=== PATIENT | male | born 1975 | race Caucasian/White ===

== ENCOUNTER 2020-01-04 18:28 | Emergency (ER) | payer OTHER, SELFPAY ==
[2020-01-04 18:46] VITALS: BP 153/96; PULSE 99; RESP 16; TEMP 36.7; O2SAT 97; BMI 32.5
--- NOTE | 2020-01-04 18:58 | ED.EYEPROB ---
HPI - Eye Problem General Chief complaint: Eye Problems Stated complaint: eye injury Time Seen by Provider: 01/04/20 18:58 History of Present Illness HPI Narrative: Patient was hit in the right eye with a branch while gardening and complains of watering and pain in the right eye with no loss of vision, no other injury Related Data Previous Rx's Medication Instructions Recorded erythromycin 0.5 inch OPHTHALMIC (EYE) TID 4 01/04/20 Days #3.5 g ibuprofen 600 mg PO Q6H PRN #20 tab 01/04/20 Allergies Allergy/AdvReac Type Severity Reaction Status Date / Time No Known Allergies Allergy Verified 01/04/20 20:10 [No Known Allergies*] Review of Systems Review of Systems: There is eye pain and watering There is no vision loss no photophobia no laceration to the face no head injury no numbness no weakness PMFSH Past Medical History Source: nursing notes reviewed Medical History (Updated 01/04/20 @ 19:54 by VIKTORIA De Dios) Gout Surgical History (Updated 01/04/20 @ 18:49 by Amaya Reese) Previous back surgery Social History Social History Smoking Status: Never smoker Use of substances other than those prescribed or required for medical reasons: No Advance Directives: No Advance Directives Information Provided: No Physical Exam Vital Signs: Vital Signs: Last Vital Signs Temp 98.1 F 01/04/20 18:46 Pulse 99 01/04/20 18:46 Resp 16 01/04/20 18:46 BP 153/96 H 01/04/20 18:46 Pulse Ox 97 01/04/20 18:46 Body Mass Index 32.5 Elevated blood pressure is noted General appearance no acute distress, A&O x3 Head is normocephalic atraumatic the right eye is held partially shot with some tearing and some conjunctival redness Neck supple Respiratory no acute distress Extremities for Eboni motion x4 Skin no rash Neuro no focal deficit Course Course Course Narrative: The right eye was stained with fluorescein after tetracaine was applied There was full relief of discomfort with tetracaine and a visual acuity exam was 2020 in the affected eye Pupils equal round reactive to light Extraocular motions intact, with staining 2 corneal abrasions were visible 1 superior to the iris and 1 medial, no foreign body was seen, the right upper and lower eyelids were everted and there was no foreign body Patient was treated for corneal abrasion Discharge Plan Discharge Clinical Impression: Corneal abrasion Qualifiers: Encounter type: initial encounter Laterality: right Qualified Code(s): S05.01XA - Injury of conjunctiva and corneal abrasion without foreign body, right eye, initial encounter Patient Disposition: Home, Self-Care Additional Instructions: There were 2 medium-size abrasions in the right cornea, these usually get better by themselves in 2-3 days and you should have lot some improvement within 2 days If not better next week follow with eye doctor, you may need a referral from primary physician Return to ER any time for discharge, worsening eye pain, loss of vision, any worse condition or any concerns Prescriptions: New erythromycin 5 mg/gram (0.5 %) ointment 0.5 inch ophthalmic (eye) TID 4 Days Qty: 3.5 RF: 0 ibuprofen 600 mg tablet 600 mg PO Q6H PRN (Reason: pain) Qty: 20 RF: 0 Referrals: Kevin Vegas [Physician] - 2 days (Right corneal abrasion) Stand Alone Forms: Work/School Release Interventions: ED Discharge Assessment Last Done: 01/04/20 20:17 Discharge Date/Time: 01/04/20 20:18
[2020-01-04] MEDS: Fluorescein Sodium STRIP 1 STRIP EYE-LEFT (19:23)
[2020-01-04] MEDS: Tetracaine HCl/PF 0.5% Oph Sol 4 ML DROPS 3 DROP EYE-LEFT (19:23)
[2020-01-04] MEDS: Erythromycin Base 0.5% Oph Oin 1 GM TUBE 1 CM EYE-RIGHT (19:59)
== END 2020-01-04 20:18 | disposition home or self-care (01) ==
PROVIDERS: Emergency Provider Emergency Medicine; PCP Internal Medicine
DX: S05.01XA Injury of conjunctiva and corneal abrasion without foreign body, right eye, initial encounter (principal); H57.11 Ocular pain, right eye; Y93.H2 Activity, gardening and landscaping; Y93.9 Activity, unspecified; Y92.9 Unspecified place or not applicable; Y99.9 Unspecified external cause status; Z79.899 Other long term (current) drug therapy
CPT/HCPCS: 99283

== ENCOUNTER 2020-09-01 12:44 | Emergency (ER) | payer OTHER, SELFPAY ==
--- NOTE | ~2020-09-01 | XR_ITS ---
EXAMINATION: XR CHEST CLINICAL INFORMATION: Shortness of breath COMPARISON: None TECHNIQUE: 2 views of the chest were obtained. FINDINGS: No significant abnormality is noted involving the heart, lungs, mediastinum, bony thorax or soft tissues. XR/XR chest 2V IMPRESSION: Unremarkable examination.
[2020-09-01 12:49] VITALS: BP 124/82; PULSE 80; RESP 16; TEMP 36.8; O2SAT 97; BMI 28.8
--- NOTE | 2020-09-01 13:08 | ECG_ITS ---
Test Reason : SHORTOF BREATH Blood Pressure : / mmHG Vent. Rate : 072 BPM Atrial Rate : 072 BPM P-R Int : 168 ms QRS Dur : 092 ms QT Int : 388 ms P-R-T Axes : 035 046 025 degrees QTc Int : 424 ms Normal sinus rhythm Normal ECG No previous ECGs available Referred By: Flores Michelle Electronically Signed By:Cristi Schulz
--- NOTE | 2020-09-01 13:16 | ED_ITS ---
HPI - SOB/Dyspnea General Chief Complaint: General Medical Stated Complaint: Chest Pain Time Seen by Provider: 09/01/20 13:08 Source: patient Mode of arrival: ambulatory Limitations: no limitations History of Present Illness MD elicited complaint: shortness of breath and chest pain Onset (ago): month(s) (1) Timing: intermittent Severity: moderate Exacerbating factors: stress Relieving factors: nothing Associated symptoms: chest pain Treatment prior to arrival: none Related Data Previous Rx's Medication Instructions Recorded erythromycin 0.5 inch OPHTHALMIC (EYE) TID 4 01/04/20 Days #3.5 g ibuprofen 600 mg PO Q6H PRN #20 tab 01/04/20 Allergies Allergy/AdvReac Type Severity Reaction Status Date / Time No Known Allergies Allergy Verified 01/04/20 20:10 [No Known Allergies*] Review of Systems Review of Systems: Constitutional : No Weight loss, No Fever, No Chills ENT/Mouth : No sore throat, No Rhinorrhea Eyes: No Eye Pain, No Swelling Cardiovascular : pos Chest Pain, pos SOB, no Dyspnea on Exertion, No Orthopnea, No Edema, No Palpitations Respiratory : No Cough, No Sputum Gastrointestinal : no Nausea, No Vomiting, No Diarrhea, No abdominal Pain, No Hematochezia, No Melena Genitourinary : No Dysuria, No Urinary Frequency Musculoskeletal : No joint pain, No Myalgias, No Joint Swelling Skin : No Skin Lesions, No rash Neuro : No Weakness, No Numbness, No Dizziness, No Headache Psych : No Anxiety/Panic, No Depression Heme/Lymph: No Bruising, No Lymphadenopathy Endocrine : No Polyuria, No Polydipsia All other systems reviewed and are negative [facility] Past Medical History Attestation statement: The following information was validated with the patient. Medical History Gout Surgical History Previous back surgery Social History Social History (Updated 09/01/20 @ 14:02 by Flores Michelle DO) Patient Tobacco Use Status: Never used Tobacco Use of substances other than those prescribed or required for medical reasons: No Advance Directives: Yes Advance Directives Information Provided: Yes Advance Directives on File: No Physical Exam Vital Signs: Vital Signs: Last Vital Signs Temp 98.2 F 09/01/20 12:49 Pulse 76 09/01/20 13:22 Resp 16 09/01/20 13:22 BP 144/85 H 09/01/20 13:22 Pulse Ox 97 09/01/20 13:22 Body Mass Index 28.8 Appearance: Alert. Oriented X3. No acute distress. Eyes: Pupils equal, round and reactive to light. ENT: Pharynx normal. Neck: Normal inspection. Neck supple. CVS: Normal heart rate and rhythm. Pulses normal. Respiratory: No respiratory distress. Breath sounds normal. Abdomen: Soft and non-tender. Skin: Skin warm and dry. Normal skin color. Normal skin turgor. Extremities: No lower extremity edema. No calf ttp Neuro: Oriented X 3. No motor deficit. No sensory deficit. Course Course Course Narrative: negative workup with one month of symptoms MDM - SOB/Dyspnea MDM Narrative Medical decision making narrative: 44 yo male with hx of gout comes in with 1 month of dyspnea and stacking breaths, he is very active and works out 2 hours a day or so without symptoms given that unlikely to be ACS, doubt PE as well he is PERC negative, will obtain EKG, CXR, troponin x 1, dispo per results and findings. Lab Data Result diagrams: 09/01/20 13:48 09/01/20 13:49 Labs: Lab Results 09/01/20 09/01/20 09/01/20 Range/Units 13:48 13:48 13:48 WBC 5.6 (4.8-10.8) X10*3/uL RBC 4.84 (4.60-5.80) X10*6/uL Hgb 15.0 (14.0-18.0) g/dl Hct 44.0 (42-52) % MCV 90.9 (80-98) fL MCH 31.0 (27.0-33.0) pg MCHC 34.1 (31.0-36.0) g/dl RDW 12.4 (11.0-16.0) % Plt Count 147 L (160-400) X10*3/uL MPV 10.3 (9.4-12.4) fL Immature Gran % (Auto) 0.4 (0.0-0.4) % Neut % (Auto) 69.7 (45-73) % Lymph % (Auto) 21.0 (20-40) % Williamson % (Auto) 5.5 (2-11) % Eos % (Auto) 3.0 (0-4) % Baso % (Auto) 0.4 (0-2) % Lymph # (Auto) 1.2 (1.2-4.9) X10*3/uL Williamson # (Auto) 0.3 (0.1-1.2) X10*3/uL Eos # (Auto) 0.2 (0.0-0.4) X10*3/uL Baso # (Auto) 0.0 (0.0-0.2) X10*3/uL Abs Immat Gran (auto) 0.02 (0.00-0.03) X10*3/uL Absolute Neuts (auto) 3.9 (2.0-8.3) X10*3/uL Absolute Nucleated RBC 0.000 (0.0-0.012) X10*3/uL Nucleated RBC % (auto) 0.0 (0.0-0.2) /100WBC Sodium (135-145) mmol/L Potassium (3.3-5.1) mmol/L Chloride (96-108) mmol/L Carbon Dioxide (22-29) mmol/L Anion Gap (12-20) BUN (9-16) mg/dL Creatinine (0.5-1.4) mg/dL Estim Creat Clear Calc Estimated GFR Random Glucose (60-115) mg/dL Calcium (8.4-10.2) mg/dL Magnesium (1.6-2.6) mg/dL Total Bilirubin (0.0-1.0) mg/dL Direct Bilirubin (0.0-0.5) mg/dL AST (5-37) U/L ALT (0-40) U/L Alkaline Phosphatase (39-117) U/L Troponin I High Sens (<3.5-35.0) ng/L B-Natriuretic Peptide 15 (<100) pg/mL Total Protein (6.5-8.0) g/dL Albumin (3.5-5.0) g/dL COVID-19 (ZANE) Negative (Negative) COVID-19 Clin Com See Note 09/01/20 09/01/20 Range/Units 13:48 13:49 WBC (4.8-10.8) X10*3/uL RBC (4.60-5.80) X10*6/uL Hgb (14.0-18.0) g/dl Hct (42-52) % MCV (80-98) fL MCH (27.0-33.0) pg MCHC (31.0-36.0) g/dl RDW (11.0-16.0) % Plt Count (160-400) X10*3/uL MPV (9.4-12.4) fL Immature Gran % (Auto) (0.0-0.4) % Neut % (Auto) (45-73) % Lymph % (Auto) (20-40) % Williamson % (Auto) (2-11) % Eos % (Auto) (0-4) % Baso % (Auto) (0-2) % Lymph # (Auto) (1.2-4.9) X10*3/uL Williamson # (Auto) (0.1-1.2) X10*3/uL Eos # (Auto) (0.0-0.4) X10*3/uL Baso # (Auto) (0.0-0.2) X10*3/uL Abs Immat Gran (auto) (0.00-0.03) X10*3/uL Absolute Neuts (auto) (2.0-8.3) X10*3/uL Absolute Nucleated RBC (0.0-0.012) X10*3/uL Nucleated RBC % (auto) (0.0-0.2) /100WBC Sodium 142 (135-145) mmol/L Potassium 4.4 (3.3-5.1) mmol/L Chloride 107 (96-108) mmol/L Carbon Dioxide 28 (22-29) mmol/L Anion Gap 11 L (12-20) BUN 22 H (9-16) mg/dL Creatinine 0.87 (0.5-1.4) mg/dL Estim Creat Clear Calc 116.7 Estimated GFR > 60 Random Glucose 115 (60-115) mg/dL Calcium 9.1 (8.4-10.2) mg/dL Magnesium 2.0 (1.6-2.6) mg/dL Total Bilirubin 0.6 (0.0-1.0) mg/dL Direct Bilirubin 0.2 (0.0-0.5) mg/dL AST 18 (5-37) U/L ALT 22 (0-40) U/L Alkaline Phosphatase 61 (39-117) U/L Troponin I High Sens < 3.5 (<3.5-35.0) ng/L B-Natriuretic Peptide (<100) pg/mL Total Protein 5.9 L (6.5-8.0) g/dL Albumin 3.9 (3.5-5.0) g/dL COVID-19 (ZANE) (Negative) COVID-19 Clin Com ECG Data Attestation: I personally reviewed and interpreted this ECG as follows: ECG interpretation date: 09/01/20 ECG interpretation time: 13:40 Interpretation: Rate: 72 Rhythm: NSR Mcclure: normal Normal P waves. Normal RUSS. Normal QRS complex. ST T wave : no JONATHAN, normal qTC: normal prior studies: no acute ischemia The study has been interpreted contemporaneously by me. . Discharge Plan Discharge Clinical Impression: Acute dyspnea Patient Disposition: Home, Self-Care Instructions: Dyspnea (ED) Additional Instructions: return to ED for any worsening symptoms or concerns Prescriptions: No Action erythromycin 5 mg/gram (0.5 %) ointment 0.5 inch ophthalmic (eye) TID 4 Days Qty: 3.5 RF: 0 ibuprofen 600 mg tablet 600 mg PO Q6H PRN (Reason: pain) Qty: 20 RF: 0 Referrals: Jeramie Martinez MD [Primary Care Provider] - 2 days Stand Alone Forms: Work/School Release
[2020-09-01 13:22] VITALS: BP 144/85; PULSE 76; RESP 16; O2SAT 97
[2020-09-01 14:00] LABS: MANUAL DIFF FLAG NO
[2020-09-01 14:02] LABS: Basophils Percent Auto 0.4 % (0-2); Eosinophils Absolute Auto 0.2 X10*3/uL (0.0-0.4); Imm Gran Abs Auto 0.02 X10*3/uL (0.00-0.03); Imm Gran Pct Auto 0.4 % (0.0-0.4); Lymphocytes Absolute Auto 1.2 X10*3/uL (1.2-4.9); Mean Corpuscular HGB Conc 34.1 g/dl (31.0-36.0); Mean Corpuscular Volume 90.9 fL (80-98); Mean Platelet Volume 10.3 fL (9.4-12.4); Monocytes Absolute Auto 0.3 X10*3/uL (0.1-1.2); Monocytes Percent Auto 5.5 % (2-11); Neutrophils Absolute Auto 3.9 X10*3/uL (2.0-8.3); Neutrophils Percent Auto 69.7 % (45-73); Platelet Count 147 X10*3/uL (160-400); Red Blood Count 4.84 X10*6/uL (4.60-5.80); Red Cell Distribution Width 12.4 % (11.0-16.0); White Blood Count 5.6 X10*3/uL (4.8-10.8)
[2020-09-01 14:13] LABS: COVID-19 Test Negative (Negative)
[2020-09-01 14:25] LABS: Alanine Aminotransferase 22 U/L (0-40); Albumin Level 3.9 g/dL (3.5-5.0); Alkaline Phosphatase 61 U/L (39-117); Anion Gap 11 (12-20); Aspartate Amino Transferase 18 U/L (5-37); Bilirubin Direct 0.2 mg/dL (0.0-0.5); Bilirubin Total 0.6 mg/dL (0.0-1.0); Blood Urea Nitrogen 22 mg/dL (9-16); Calcium 9.1 mg/dL (8.4-10.2); Carbon Dioxide 28 mmol/L (22-29); Chloride 107 mmol/L (96-108); Creatinine Clr Calc Pharmacy 116.7; Estimated Glomerular Filt Rate > 60; Glucose Random 115 mg/dL (60-115); Potassium 4.4 mmol/L (3.3-5.1); Sodium 142 mmol/L (135-145); Total Protein 5.9 g/dL (6.5-8.0)
[2020-09-01 14:28] LABS: B Type Natriuretic Peptide 15 pg/mL (<100); Troponin-I High Sensitivity < 3.5 ng/L (<3.5-35.0)
== END 2020-09-01 14:51 | disposition home or self-care (01) ==
PROVIDERS: Emergency Provider Emergency Medicine; PCP Internal Medicine
DX: R06.00 Dyspnea, unspecified (principal); R07.9 Chest pain, unspecified; R06.02 Shortness of breath; Z20.822 Contact with and (suspected) exposure to COVID-19; Z79.899 Other long term (current) drug therapy
CPT/HCPCS: 36415; 71046; 80048; 80076; 83735; 83880; 84484; 85025; 87635; 93005; 99284

== ENCOUNTER → 2022-05-30 08:35 | Outpatient (BNVA) | payer BC, SELFPAY | PROVIDERS: PCP Internal Medicine; Visit Provider Nurse Practitioner Family | DX: Z13.89 Encounter for screening for other disorder (principal) ==

== ENCOUNTER 2023-09-14 13:14 | Emergency (ER) | payer BC, SELFPAY ==
--- NOTE | ~2023-09-14 | XR_ITS ---
EXAMINATION: XR SHOULDER, LEFT CLINICAL INFORMATION: Left shoulder pain worsening over last 2 days. COMPARISON: None available. TECHNIQUE: AP external rotation, Grashey, scapular Y, and axillary views of the left shoulder. FINDINGS: Acromioclavicular joint is intact. No significant glenohumeral cartilage space loss. There are curvilinear calcifications along the rotator cuff. No displaced fracture or dislocation. XR/XR shoulder LT min 2V IMPRESSION: Calcific tendinosis of the left shoulder.
[2023-09-14 13:31] VITALS: BP 179/104; PULSE 99; RESP 18; TEMP 36.9; O2SAT 99; BMI 33.4
--- NOTE | 2023-09-14 13:37 | ED.GENADULT ---
HPI - General Adult General Chief complaint: Extremity Problem Stated complaint: shoulder pain Time Seen by Provider: 09/14/23 14:25 Source: patient, RN notes reviewed and old records reviewed Mode of arrival: ambulatory History of Present Illness ED Provider: Maris Pinedo PA-C HPI narrative: 47-year-old male with no significant past medical history presenting to the ED complaining of acute on chronic left shoulder pain x5 days. States was lifting bags into vehicle for vacation when felt shooting/stabbing pain and left shoulder. Reports pain is worse with movement, and worse at night. Took Motrin last night without relief. Reports associated paresthesias to LUE. Denies direct injury/trauma or fall, weakness, chest pain/shortness of breath. Admits to receiving prior cortisone injection to left shoulder months ago at going on Orthopedics with some relief. Related Data Previous Rx's ?Medication ?Instructions ?Recorded acetaminophen 500 mg tablet 500 mg PO Q6H PRN fever or pain 09/14/23 (Tylenol Extra Strength) #14 tabs cyclobenzaprine 5 mg tablet 5 mg PO Q8H PRN pain (scale score 09/14/23 7-10) 5 days #14 tabs lidocaine 5 % topical patch 1 patch topical DAILY PRN pain #30 09/14/23 (Lidoderm) ea naproxen 500 mg tablet 500 mg PO BID PRN pain 10 days #20 09/14/23 tabs Allergies Allergy/AdvReac Type Severity Reaction Status Date / Time No Known Allergies Allergy Verified 09/14/23 13:36 [No Known Allergies*] Review of Systems Review of Systems: Constitutional: No Fever, No Chills ENT/Mouth: No Ear Pain, No Nasal Congestion, No sore throat, No Rhinorrhea, No Swallowing Difficulty Cardiovascular: No Chest Pain, No SOB Respiratory: No Cough Gastrointestinal: No Nausea, No Vomiting, No Abdominal pain Musculoskeletal: +joint pain, No Myalgias, No Joint Swelling Skin: No Skin Lesions, No rash Neuro: No Weakness, No Numbness, + Paresthesias Yes all other systems are reviewed and are negative Constitutional: Constitutional: Reports as per [facility] Past Medical History Attestation statement: The following information was validated with the patient. Source: old records reviewed Medical History Gout Surgical History Previous back surgery Social History Social History Patient Tobacco Use Status: Never used Tobacco Advance Directives: No Advance Directives Information Provided: Yes Do you have a plan to hurt others: No Plan Physical Exam ED Vital Signs: Vital Signs - 24 hr 09/14/23 13:31 09/14/23 15:47 Temperature 98.4 F 97.8 F Pulse Rate 99 85 Respiratory Rate 18 16 Blood Pressure 179/104 H 135/87 Pulse Oximetry 99 98 Oxygen Delivery Method Room Air Room Air BMI result Body Mass Index 33.4 Const General: cooperative, healthy appearing and no acute distress Orientation/consciousness: patient oriented x3 Limitations: no limitations HENMT Head: Yes normal to inspection and Yes atraumatic Ears: hearing grossly normal bilaterally General nose exam: Normal external nose present Face and sinus: Yes normal facial exam Eyes General: appearance normal, both eyes and all related structures EOM: EOMs intact bilaterally Neck Neck: Yes normal visual inspection and Yes no meningeal signs Resp Effort & Inspection: normal respiratory effort and no respiratory distress Cardio Rate: regular rate Skin Rashes: no rashes Wounds: no wounds Neuro General: patient oriented x3, tone normal and no meningeal signs Cranial nerves: Yes CN's II-XII intact bilaterally Gait exam (Neuro): Normal gait present Extrem Other: Left shoulder without appreciable deformity. + tenderness to anterior glenohumeral joint line. Limited ROM to LUE secondary to pain. Neurovascular intact distal General: Yes normal to inspection Course Course Course Narrative: This is a Rapid Medical Examination (RME) performed by Sandra Donald PA-C in triage. Full HPI, ROS, assessment and treatment plan per primary provider in the Main ED. 47 yo male here with acute on chronic left shoulder pain x5 days. Reports that while on vacation he felt a twinge in his left shoulder. Pain is described as shooting/ throbbing, unable to lift the arm without assistance from his right arm. Reports numbness/tingling in his fingers at night can not difficult for him to sleep. Denies new injury or trauma. took Motrin yesterday with minimal relief. received corticosteroid injection in L shoulder 6 mo ago with improvement. has an appt w/ his orthopedic surgeon on Sunday (in 4 days). Plan: xrs ordered 1553--XR shoulder LT min 2V IMPRESSION: Calcific tendinosis of the left shoulder. Results discussed with patient including worrisome signs and symptoms and strict return precautions, and when to return to the emergency department. They verbalized understanding and feel safe for discharge at this time. Medications Administered Discontinued Medications Generic Name Dose Route Start Last Admin Trade Name Rafael PRN Reason Stop Dose Admin Acetaminophen 650 mg 09/14/23 14:37 09/14/23 14:54 Acetaminophen 325 Mg Tablet PO 09/14/23 14:38 650 mg ONCE ONE Administration Ketorolac Tromethamine 30 mg 09/14/23 14:37 09/14/23 14:54 Ketorolac Tromethamine 30 Mg/Ml Vial IM 09/14/23 14:38 30 mg ONCE ONE Administration Medical Decision Making Medical Decision Making MDM Narrative: 47-year-old male with no significant past medical history presenting to the ED complaining of acute on chronic left shoulder pain x5 days. On exam hypertensive likely from pain, NAD, nontoxic appearing, physical exam as noted above. Concern for rotator cuff injury or labrum tear vs MSK/tendon/ligamental injury. Lower suspicion for fracture. Unlikely bursitis, or ACS Plan: EKG, x-ray, pain control Please refer to course for remaining clinical decision making, interpretation of labs/imaging results, and discussions with consultants and/or family members. Differential Diagnosis Differential Diagnoses: The differential diagnosis associated with the presentation includes As above Independent Interpretation I performed an independent interpretation of an: Plain X-Ray Radiology Impression Discussion of test interpretation with radiology: I have reviewed the radiologist's reading. External Record Review External record reviewed: Inpatient record, Office record, Outpatient record, Prior outpatient labs, Prior outpatient radiology, Primary care record and Outside ED record Tests considered The following testing was considered but not selected: As above Prescription Management I considered prescription management with: Pain Medication Discharge Plan Discharge Clinical Impression: Left shoulder pain Patient Disposition: Home, Self-Care Instructions: Shoulder Pain (ED) Additional Instructions: Flexeril is a muscle relaxer, take at night as it makes you drowsy, do not drive, drink alcohol, or operate machinery while taking it Naproxen as an anti-inflammatory / pain medication, take with food Lidoderm patches are numbing patches, apply to painful area In addition take Tylenol at home If symptoms persist or worsen, pain becomes unbearable, return to the ED Prescriptions: New acetaminophen [Tylenol Extra Strength] 500 mg tablet 500 mg PO Q6H PRN (Reason: fever or pain) Qty: 14 0RF lidocaine [Lidoderm] 5 % adhesive patch,medicated 1 patch topical DAILY MDD remove after 12 hours PRN (Reason: pain) Qty: 30 0RF Rx Instructions: leave on most painful area for up to 12 hrs naproxen 500 mg tablet 500 mg PO BID PRN (Reason: pain) 10 Days Qty: 20 0RF cyclobenzaprine 5 mg tablet 5 mg PO Q8H PRN (Reason: pain (scale score 7-10)) 5 Days Qty: 14 0RF Referrals: [facility] [Provider Group] Jeramie Martinez MD [Primary Care Provider] - Print Language: [place]
--- OUTSIDE RECORDS SUMMARY | 2023-09-14 14:30 | XMS_ITS | Continuity of Care Document ---
Author Organization [facility] Nathan [place] lt Address [address] [place] [address]- Care Team Providers Care Implementation Project Coordinator Name Role Phone Michelle JUDGE, Jeramie Minaya Primary Care Physician [phone] Encounter [facility] Date(s): 05/26/22 - 06/25/22 [facility] Adult [address] [place] [address]- Allergies, Adverse Reactions, Alerts No Known Allergies Immunizations Given and Recorded Vaccine Date Status Refusal Reason SARS-CoV-2 (COVID-19) mRNA-1273 vaccine 02/07/21 R ecorded SARS-CoV-2 (COVID-19) mRNA-1273 vaccine 06/12/20 R ecorded SARS-CoV-2 (COVID-19) mRNA-1273 vaccine 05/15/20 R ecorded influenza virus vaccine, inactivated 04/20/20 Give n influenza virus vaccine, inactivated 1 03/02/17 Gi mariana tetanus/diphtheria/pertussis, acel(Tdap) 06/16/15 Given 1Result Comment: [03/02/2017] [facility]:[id number] Medications allopurinol 300 mg oral tablet 1, tablet, By Mouth, Daily at bedtime, # 90 tablet, Refills 1, Maintenance, 11/15/21 13:02:00 EDT, Route to Pharmacy Electronically, [id number], 173.5, cm, 04/20/20 7:25:00 EST, Height Start Date: 11/15/21 Status: Ordered Ibuprofen 200 mg, PRN, Refills 0, Maintenance, Pain , Severe, 04/11/19 10:31:00 EST Start Date: 04/11/19 Status: Ordered Problem List Condition Confirmation Course Effective Dates Status H ealth Status Informant BMI 34.0-34.9,adult Confirmed Active Carpal tunnel syndrome, bilateral Confirmed Active Chronic lower back pain Confirmed Active Gout Confirmed Active Nephrolithiasis 1 Confirmed Active Elevated liver function tests Confirmed Active Obese class II Confirmed Active [facility] Social History Social History Type Response Smoking Status Former smoker; Other : Quit smoking age 18; entered on: 03/02/17 Sex Patient Care team information Care Team Personnel Name: Michelle JUDGE, Jeramie Minaya Position: [facility] Primary Care Physician Member Role: PCP Address: Address: [address] [place] [id number]- Care Team Related Persons Name: SEBASTIEN DA SILVA Address: [address] [address]
--- OUTSIDE RECORDS SUMMARY | 2023-09-14 14:30 | XMS_ITS | Continuity of Care Document ---
Author Organization [facility] Nathan [place] lt Address [address] [place] [id number]- Care Team Providers Care Television Mechanic Name Role Phone Jeramie Martinez MD Primary Care Physician Encounter [facility] Date(s): 07/25/22 - 08/24/22 [facility] Adult [address] [place] [address]- Attending Physician: Admtr, Ar8 Admitting Physician: Admtr, Ar8 Referring Physician: Admtr, Ar8 Allergies, Adverse Reactions, Alerts No Known Allergies Immunizations Given and Recorded Vaccine Date Status Refusal Reason SARS-CoV-2 (COVID-19) mRNA-1273 vaccine 02/07/21 R ecorded SARS-CoV-2 (COVID-19) mRNA-1273 vaccine 06/12/20 R ecorded SARS-CoV-2 (COVID-19) mRNA-1273 vaccine 05/15/20 R ecorded influenza virus vaccine, inactivated 04/20/20 Give n influenza virus vaccine, inactivated 1 03/02/17 Gi mariana tetanus/diphtheria/pertussis, acel(Tdap) 06/16/15 Given 1Result Comment: [03/02/2017] [facility]:[id number] Medications allopurinol 300 mg oral tablet 1, tablet, By Mouth, Daily at bedtime, # 90 tablet, Refills 1, Maintenance, 11/15/21 13:02:00 EDT, Route to Pharmacy Electronically, [id number], 173.5, cm, 04/20/20 7:25:00 EST, Height Start [...] Gout Confirmed Active Nephrolithiasis 1 Confirmed Active Left groin pain Confirmed Active Elevated liver function tests Confirmed Active Obese class II Confirmed Active [facility] Social History Social History Type Response Smoking Status Former smoker; Other : Quit smoking age 18; entered on: 03/02/17 Sex Laboratory * Event Display: Non Lab Results Authored Date: * Event Display: Non [facility] Lab Results Authored Date: * Event Display: Non [facility] Lab Results Authored Date: Radiology * Event Display: MRI Spine, Non- [facility] Authored Date: Patient Care team information Care Team Personnel Name: Michelle JUDGE, Jeramie Minaya Position: S Physician - Primary Care Member Role: PCP Address: Address: [address] [place] [address] Adult [facility] [place] [address]- Care Team Related Persons Name: SEBASTIEN DA SILVA Address: home [address] [address]
--- OUTSIDE RECORDS SUMMARY | 2023-09-14 14:31 | XMS_ITS | Continuity of Care Document ---
Author Organization [facility] [place] Address [address] [place] [address]- Care Team Providers Care Plant Etiologist Name Role Phone Michelle JUDGE, Jeramie Minaya Primary Care Physician [facility] Date[facility]): [facility]20 - 03/23/20 [facility] Adult [address] [place] [address]- Attending Physician: Marely Del Rosario NP Allergies, Adverse Reactions, Alerts Substance Reaction Severity Status NKA Active Immunizations Given and Recorded Vaccine Date Status Refusal Reason influenza virus vaccine, inactivated 1 03/02/17 Gi mariana tetanus/diphtheria/pertussis, acel(Tdap) 06/16/15 Given 1Result Comment: [03/02/2017] [facility]:42435-616-62 Medications allopurinol 300 mg oral tablet 300 mg, 1, tablet, By Mouth, Daily at bedtime, # 90 tablet, Refills 1, Tot. Refills 1, Maintenance,03/16/20 8:08:00 EST, Route to Pharmacy Electronically, [facility]/pharmacy #[id number], 173.5, cm, 03/16/20 7:45:00 EST, Height, 99.5, kg, 04/17/19 11:41:00 EST, D... Start Date: 03/16/20 Status: Ordered Ibuprofen 200 mg, PRN, Refills 0, Maintenance, Pain , Severe, 04/11/19 10:31:00 EST Start Date: 04/11/19 Status: Ordered Problem List Condition Effective Dates Status Health Status Inform ant Carpal tunnel syndrome, bilateral(Confirmed) Active Chronic lower back pain(Confirmed) Active Gout(Confirmed) Active Vital Signs Most recent to oldest [Reference Range]: 1 Height 173.5 cm (03/16/20 7:45 AM) Social History Social History Type Response Smoking Status Former smoker; Other : Quit smoking age 18; entered on: 03/02/17 Sex
--- OUTSIDE RECORDS SUMMARY | 2023-09-14 14:31 | XMS_ITS | Continuity of Care Document ---
Author Organization [facility] [place] lt Address [address] [place] [address]- Care Team Providers Care Assistant Professor Sculpture Name Role Phone Jeramie Martinez MD Primary Care Physician Encounter [facility] Date(s): 04/13/22 - 05/13/22 [facility] Adult [address] [place] [address]- Attending Physician: Admtr, Ar8 Admitting Physician: Admtr, [...] acel(Tdap) 06/16/15 Given 1Result Comment: [03/02/2017] [facility]:45788-581-68 Medications allopurinol 300 mg oral tablet 1, tablet, By Mouth, Daily at bedtime, # 90 tablet, Refills 1, Maintenance, 11/15/21 13:02:00 EDT, Route to Pharmacy Electronically, [facility], 173.5, cm, 04/20/20 7:25:00 EST, Height Start Date: 11/15/21 Status: Ordered Ibuprofen 200 mg, PRN, Refills 0, Maintenance, Pain , Severe, 04/11/19 10:31:00 EST Start Date: 04/11/19 Status: Ordered Problem List Condition Confirmation Course Effective Dates Status Health St atus Informant BMI 34.0-34.9,adult Confirmed Active Carpal tunnel syndrome, bilateral Confirmed Active Chronic lower back pain Confirmed Active Gout Confirmed Active Elevated liver function tests Confirmed Active Obese class II Confirmed Active Social History Social History Type Response Smoking Status Former smoker; Other : Quit smoking age 18; entered on: 03/02/17 Sex Note * Event Display: Non BH Lab Results Authored Date: * Event Display: Non BH Lab Results Authored Date: * Event Display: MRI Spine, Non- BH Authored Date: * Event Display: Non BH Lab Results Authored Date: Patient Care team information Care Team Personnel Name: Michelle JUDGE, Jeramie Minaya Position: [facility] Primary Care Physician Member Role: PCP Address: Address: [address] [place], [place] [address] [address]- Care Team Related Persons Name: SEBASTIEN DA SILVA Address: home [address] [place] [address] [place] [address]
--- OUTSIDE RECORDS SUMMARY | 2023-09-14 14:31 | XMS_ITS | Continuity of Care Document ---
Author Organization [facility] [place] Address [address] [place] [address]- Care Team Providers Care Rug Repairer Name Role Phone Jeramie Martinez MD Primary Care Physician [phone] [facility]): 07/26/22 - 08/25/22 [facility] Adult [address] [place] [address]- Allergies, Adverse Reactions, Alerts No Known Allergies Immunizations Given and Recorded Vaccine Date Status Refusal Reason SARS-CoV-2 (COVID-19) mRNA-1273 vaccine 02/07/21 R ecorded SARS-CoV-2 (COVID-19) mRNA-1273 vaccine 06/12/20 R ecorded SARS-CoV-2 (COVID-19) mRNA-1273 vaccine 05/15/20 R ecorded influenza virus vaccine, inactivated 04/20/20 Give n influenza virus vaccine, inactivated 1 03/02/17 Gi mariana tetanus/diphtheria/pertussis, acel(Tdap) 06/16/15 Given 1Result Comment: [03/02/2017] [facility]:97079-129-85 Medications allopurinol 300 mg oral tablet 1, tablet, By Mouth, Daily at bedtime, # 90 tablet, Refills 1, Maintenance, 11/15/21 13:02:00 EDT, Route to Pharmacy Electronically, [facility], 173.5, cm, 04/20/20 7:25:00 EST, Height Start [...] Confirmed Active Obese class II Confirmed Active [facility] Social History Social History Type Response Smoking Status Former smoker; Other : Quit smoking age 18; entered on: 03/02/17 Sex Patient Care team information Care Team Personnel Name: Michelle JUDGE, Jeramie Minaya Position: [facility] Physician - Primary Care Member Role: PCP Address: Address: [address] [place] [address]- Care Team Related Persons Name: SEBASTIEN DA SILVA Address: [address] [address]
--- OUTSIDE RECORDS SUMMARY | 2023-09-14 14:31 | XMS_ITS | Continuity of Care Document ---
Author Organization [facility] [place] Address [address] [place] [address]- Care Team Providers Care Dump Truck Driver Name Role Phone Michelle JUDGE, Jeramie Minaya Primary Care Physician [phone] [facility] Date[facility]): 05/25/22 - 06/24/22 [facility] Adult [address] [place] [address]- Allergies, Adverse Reactions, Alerts No Known Allergies Immunizations Given and Recorded Vaccine Date Status Refusal Reason SARS-CoV-2 (COVID-19) mRNA-1273 vaccine 02/07/21 R ecorded SARS-CoV-2 (COVID-19) mRNA-1273 vaccine 06/12/20 R ecorded SARS-CoV-2 (COVID-19) mRNA-1273 vaccine 05/15/20 R ecorded influenza virus vaccine, inactivated 04/20/20 Give n influenza virus vaccine, inactivated 1 03/02/17 Gi mariana tetanus/diphtheria/pertussis, acel(Tdap) 06/16/15 Given 1Result Comment: [03/02/2017] [facility]:16650-202-83 Medications allopurinol 300 mg oral tablet 1, tablet, By Mouth, Daily at bedtime, # 90 tablet, Refills 1, Maintenance, 11/15/21 13:02:00 EDT, Route to Pharmacy Electronically, [facility] 25685, 173.5, cm, 04/20/20 7:25:00 EST, Height Start [...] Personnel Name: Michelle JUDGE, Jeramie Minaya Position: [facility] Primary Care Physician Member Role: PCP Address: Address: [address] [place] [address]- Care Team Related Persons Name: ESBASTIEN DA SILVA Address: [address] [address]
--- OUTSIDE RECORDS SUMMARY | 2023-09-14 14:31 | XMS_ITS | Continuity of Care Document ---
Author Organization [facility] ter Address [address] [place] [address]- Care Team Providers Care End Frazer Name Role Phone Jeramie Martinez MD Primary Care Physician Encounter [facility] Date(s): 04/17/19 - 04/17/[address] [address]- [facility] Discharge Disposition: A-D/C Home Attending Physician: Manjeet Berrios MD Admitting Physician: Manjeet Berrios MD Referring Physician: Manjeet Berrios MD Allergies, Adverse Reactions, Alerts Substance Reaction Severity Status NKA Active Immunizations Given and Recorded Vaccine Date Status Refusal Reason influenza virus vaccine, inactivated 1 03/02/17 Gi mariana tetanus/diphtheria/pertussis, acel(Tdap) 06/16/15 Given 1Result Comment: [03/02/2017] [facility][NOTE 2]:[id number] Medications allopurinol 300 mg oral tablet 300 mg, 1, tablet, By Mouth, Daily at bedtime, # 30 tablet, Refills 0, Tot. Refills 0, Maintenance,06/16/15 15:57:32, Route to Pharmacy Electronically, [id number], [facility]/pharmacy #[id number] Start Date: 06/16/15 Status: Ordered Ibuprofen 200 mg, PRN, Refills 0, Maintenance, Pain , Severe, 04/11/19 10:31:00 EST Start Date: 04/11/19 Status: Ordered Problem List Condition Effective Dates Status Health Status Inform ant Carpal tunnel syndrome, bilateral(Confirmed) Active Chronic lower back pain(Confirmed) Active Gout(Confirmed) Active Vital Signs Most recent to oldest [Reference Range]: 1 2 Height 173.5 cm (04/17/19 11:41 AM) 175.26 cm (04/11/19 10:23 AM) Weight 99.5 kg (04/17/19 11:41 AM) 95.45 kg (04/11/19 10:23 AM) Oxygen Saturation [94-100 %] 99 % (04/17/19 11:41 AM) Pulse Rate [55-90 bpm] 93 bpm *H* (04/17/19 11:41 AM) Body Mass Index [18.5-24.99] 33.05 *>HHI* (04/17/19 11:41 AM) 31.07 *>HHI* (04/11/19 10:23 AM) Blood Pressure [90-138/55-84 mm Hg] 129/ 88mm Hg (04/17/19 11:41 AM) Respiratory Rate [16-30 br/min] 18 br/mi n (04/17/19 11:41 AM) Temperature [96.8-100.4 DegF] 98.4 DegF (04/17/19 12:30 PM) 98.3 DegF (04/17/19 11:41 AM) Mode of Delivery (Oxygen) Room air (04/17/19 11:41 AM) Blood pressure sites Arm, left (04/17/19 11:41 AM) Temperature Route Temporal (04/17/19 12:30 PM) Temporal (04/17/19 11:41 AM) Dry Weight 99.5 kg (04/17/19 11:41 AM) 95.45 kg (04/11/19 10:23 AM) Weight Obtained Via Standing scale (04/17/19 11:41 AM) Patient/family stated (04/11/19 10:23 AM) Dry Weight Obtained Via Standing scale (04/17/19 11:41 AM) Patient/family stated (04/11/19 10:23 AM) Social History Social History Type Response Smoking Status Former smoker; Other : Quit smoking age 18; entered on: 03/02/17 Sex
--- OUTSIDE RECORDS SUMMARY | 2023-09-14 14:31 | XMS_ITS | Continuity of Care Document ---
Author Organization [facility] [place] Address [address] [place] [address]- Care Team Providers Care Chemical Operations Specialist Name Role Phone Michelle JUDGE, Jeramie Minaya Primary Care Physician [facility]s): 04/25/21 - 05/25/21 [facility] Adult [address] [place] [address]- Attending Physician: Admtr, [id number] Admitting Physician: AdmtrRula Referring Physician: Admtr, Ar8 Allergies, Adverse Reactions, Alerts No Known Allergies Immunizations Given and Recorded Vaccine Date Status Refusal Reason SARS-CoV-2 (COVID-19) mRNA-1273 vaccine 02/07/21 R ecorded SARS-CoV-2 (COVID-19) mRNA-1273 vaccine 06/12/20 R ecorded SARS-CoV-2 (COVID-19) mRNA-1273 vaccine 05/15/20 R ecorded influenza virus vaccine, inactivated 04/20/20 Give n influenza virus vaccine, inactivated 1 03/02/17 Gi mariana tetanus/diphtheria/pertussis, acel(Tdap) 06/16/15 Given 1Result Comment: [03/02/2017] [facility]:92019-680-86 Medications allopurinol 300 mg oral tablet 1, tablet, By Mouth, Daily at bedtime, # 90 tablet, Refills 1, Tot. Refills 1, Maintenance, 03/27/21 10:54:00 EST, Route to Pharmacy Electronically, [facility]/pharmacy #[id number], 173.5, cm, 04/20/20 7:25:00 EST, Height, 99.5, kg, 04/17/19 11:41:00 EST, Dry Weight Start Date: 03/27/21 Status: Ordered Ibuprofen 200 mg, PRN, Refills 0, Maintenance, Pain , Severe, 04/11/19 10:31:00 EST Start Date: 04/11/19 Status: Ordered Problem List Condition Effective Dates Status Health Status Inform ant BMI 34.0-34.9,adult(Confirmed) Active Carpal tunnel syndrome, bilateral(Confirmed) Active Chronic lower back pain(Confirmed) Active Gout(Confirmed) Active Elevated liver function tests(Confirmed) Active Social History Social History Type Response Smoking Status Former smoker; Other : Quit smoking age 18; entered on: 03/02/17 Sex
--- OUTSIDE RECORDS SUMMARY | 2023-09-14 14:31 | XMS_ITS | Continuity of Care Document ---
Author Organization [facility] Nathan [place] Address [address] [place] [address]- Care Team Providers Care Phlebotomy Specialist Name Role Phone Jeramie Martinez MD Primary Care Physician [phone] Encounter [facility] Date(s): 03/16/20 - 05/09/20 [facility] Adult [address] [place] [address]- Attending Physician: Marely Del Rosario NP Referring Physician: Jeramie Martinez MD Allergies, Adverse Reactions, Alerts Substance Reaction Severity Status NKA Active Immunizations Given and Recorded Vaccine Date Status Refusal Reason influenza virus vaccine, inactivated 04/20/20 Give n influenza virus vaccine, inactivated 1 03/02/17 Gi mariana tetanus/diphtheria/pertussis, acel(Tdap) 06/16/15 Given 1Result Comment: [03/02/2017] [facility]:16685-947-87 Medications allopurinol 300 mg oral tablet 300 mg, 1, tablet, By Mouth, Daily at bedtime, # 90 tablet, Refills 1, Tot. Refills 1, Maintenance,03/16/20 8:08:00 EST, Route to Pharmacy Electronically, [facility]/pharmacy #[id number], 173.5, cm, 03/16/20 7:45:00 EST, [...]
--- OUTSIDE RECORDS SUMMARY | 2023-09-14 14:31 | XMS_ITS | Continuity of Care Document ---
Author Organization [facility] [place] Address [address] [place] [address]- Care Team Providers Care Property Site Manager Name Role Phone Michelle JUDGE, Jeramie Minaya Primary Care Physician [phone] [facility] Date[facility]s): 01/22/21 - 05/25/21 [facility] Adult [address] [place] [address]- Attending Physician: Marely Del Rosario NP Referring Physician: Jeramie Martinez MD Allergies, Adverse Reactions, Alerts No Known Allergies Immunizations Given and Recorded Vaccine Date Status Refusal Reason SARS-CoV-2 (COVID-19) mRNA-1273 vaccine 02/07/21 R ecorded SARS-CoV-2 (COVID-19) mRNA-1273 vaccine 06/12/20 R ecorded SARS-CoV-2 (COVID-19) mRNA-1273 vaccine 05/15/20 R ecorded influenza virus vaccine, inactivated 04/20/20 Give n influenza virus vaccine, inactivated 1 03/02/17 Gi mariana tetanus/diphtheria/pertussis, acel(Tdap) 06/16/15 Given 1Result Comment: [03/02/2017] [facility][NOTE 3]:[id number] Medications allopurinol 300 mg oral tablet 1, tablet, By Mouth, Daily at bedtime, # 90 tablet, Refills 1, Tot. Refills 1, Maintenance, 03/27/21 10:54:00 EST, Route to Pharmacy Electronically, [facility]/pharmacy #[id number], 173.5, cm, 04/20/20 7:25:00 EST, Height, [...]
--- OUTSIDE RECORDS SUMMARY | 2023-09-14 14:31 | XMS_ITS | Continuity of Care Document ---
Author Organization [facility] [place] Address [address] [place] [address]- Care Team Providers Care Air Compressor Engineer Name Role Phone Jeramie Martinez MD Primary Care Physician [phone] Encounter [facility] Date(s): 08/31/20 - 09/30/20 [facility] Adult [address] [place] [address]- Allergies, Adverse Reactions, Alerts Substance Reaction Severity Status NKA Active Immunizations Given and Recorded Vaccine Date Status Refusal Reason influenza virus vaccine, inactivated 04/20/20 Give n influenza virus vaccine, inactivated 1 03/02/17 Gi mariana tetanus/diphtheria/pertussis, acel(Tdap) 06/16/15 Given 1Result Comment: [03/02/2017] [facility]:08762-793-73 Medications allopurinol 300 mg oral tablet 1, tablet, By Mouth, Daily at bedtime, # 90 tablet, Refills 1, Tot. Refills 0, Maintenance, 09/15/20 8:13:00 EDT, Route to Pharmacy Electronically, [email or web address] 0[facility]82, 173.5, cm, 04/20/20 7:25:00 EST, Height, 99.5, kg, 04/17/19 11:41:00 EST, Dry Weight Start Date: 09/15/20 Status: Ordered Ibuprofen 200 mg, PRN, Refills [...]
--- OUTSIDE RECORDS SUMMARY | 2023-09-14 14:31 | XMS_ITS | Continuity of Care Document ---
Author Organization [facility] [place] Address [address] [place] [address]- Care Team Providers Care Laboratory Sample Carrier Name Role Phone Jeramie Martinez MD Primary Care Physician [phone] [facility] Date(s): 08/01/22 - 08/31/22 [facility] Adult [address] [place] [address]- Allergies, Adverse Reactions, Alerts No Known Allergies Immunizations Given and Recorded Vaccine Date Status Refusal Reason SARS-CoV-2 (COVID-19) mRNA-1273 vaccine 02/07/21 R ecorded SARS-CoV-2 (COVID-19) mRNA-1273 vaccine 06/12/20 R ecorded SARS-CoV-2 (COVID-19) mRNA-1273 vaccine 05/15/20 R ecorded influenza virus vaccine, inactivated 04/20/20 Give n influenza virus vaccine, inactivated 1 03/02/17 Gi mariana tetanus/diphtheria/pertussis, acel(Tdap) 06/16/15 Given 1Result Comment: [03/02/2017] [facility]:85560-630-84 Medications allopurinol 300 mg oral tablet 1, tablet, By Mouth, Daily at bedtime, # 90 tablet, Refills 1, Maintenance, 11/15/21 13:02:00 EDT, Route to Pharmacy Electronically, [facility] 34954, 173.5, cm, 04/20/20 7:25:00 EST, Height Start [...] Confirmed Active Obese class II Confirmed Active [facility] Social History Social History Type Response Smoking Status Former smoker; Other : Quit smoking age 18; entered on: 03/02/17 Sex Patient Care team information Care Team Personnel Name: Michelle JUDGE, Jeramie Minaya Position: [facility] Physician - Primary Care Member Role: PCP Address: Address: [address] [place] [address]- Care Team Related Persons Name: SEBASTIEN DA SILVA Address: [address] [address]
--- OUTSIDE RECORDS SUMMARY | 2023-09-14 14:31 | XMS_ITS | Continuity of Care Document ---
Author Organization [facility] Nathan [place] lt Address [address] [place] [address]- Care Team Providers Care Supervisor Order Takers Name Role Phone Michelle JUDGE, Jeramie Minaya Primary Care Physician [facility]): 05/04/22 - 06/03/22 [facility] Adult [address] [place] [address]- Allergies, Adverse Reactions, Alerts No Known Allergies Immunizations Given and Recorded Vaccine Date Status Refusal Reason SARS-CoV-2 (COVID-19) mRNA-1273 vaccine 02/07/21 R ecorded SARS-CoV-2 (COVID-19) mRNA-1273 vaccine 06/12/20 R ecorded SARS-CoV-2 (COVID-19) mRNA-1273 vaccine 05/15/20 R ecorded influenza virus vaccine, inactivated 04/20/20 Give n influenza virus vaccine, inactivated 1 03/02/17 Gi mariana tetanus/diphtheria/pertussis, acel(Tdap) 06/16/15 Given 1Result Comment: [03/02/2017] [facility]:38361-882-79 Medications allopurinol 300 mg oral tablet 1, tablet, By Mouth, Daily at bedtime, # 90 tablet, Refills 1, Maintenance, 11/15/21 13:02:00 EDT, Route to Pharmacy Electronically, [facility] 40618, 173.5, cm, 04/20/20 7:25:00 EST, Height Start [...] Personnel Name: Michelle JUDGE, Jeramie Minaya Position: [facility] Primary Care Physician Member Role: PCP Address: Address: [address] [place] [address]- Care Team Related Persons Name: SEBASTIEN DA SILVA Address: [address] [address]
--- OUTSIDE RECORDS SUMMARY | 2023-09-14 14:31 | XMS_ITS | Continuity of Care Document ---
Author Organization [facility] [place] Address [address] [place] [address]- Care Team Providers Care Social Work Lecturer Name Role Phone Jeramie Martinez MD Primary Care Physician [phone] [facility]s): 11/23/22 - 12/23/22 [facility] Adult [address] [place] [address]- Allergies, Adverse Reactions, Alerts No Known Allergies Immunizations Given and Recorded Vaccine Date Status Refusal Reason SARS-CoV-2 (COVID-19) mRNA-1273 vaccine 02/07/21 R ecorded SARS-CoV-2 (COVID-19) mRNA-1273 vaccine 06/12/20 R ecorded SARS-CoV-2 (COVID-19) mRNA-1273 vaccine 05/15/20 R ecorded influenza virus vaccine, inactivated 04/20/20 Give n influenza virus vaccine, inactivated 1 03/02/17 Gi mariana tetanus/diphtheria/pertussis, acel(Tdap) 06/16/15 Given 1Result Comment: [03/02/2017] [facility]:32241-020-35 Problem List Condition Confirmation Course Effective Dates Status H ealth Status Informant BMI 34.0-34.9,adult Confirmed Active Carpal tunnel syndrome, bilateral Confirmed Active Chronic lower back pain Confirmed Active Gout Confirmed Active Nephrolithiasis 1 Confirmed Active Left groin pain Confirmed Active Elevated liver function tests Confirmed Active Obese class II Confirmed Active [facility] Social History Social History Type Response Smoking Status Former smoker; Other : Quit smoking age 18; entered on: 03/02/17 Sex Patient Care team information Care Team Personnel Name: Jeramie Martinez MD Position: S Physician - Primary Care Member Role: PCP Address: Address: [address] [place] [address] [place] [address]- Care Team Related Persons Name: AVINASHSEBASTIEN Address: home [address] [address]
--- OUTSIDE RECORDS SUMMARY | 2023-09-14 14:31 | XMS_ITS | Continuity of Care Document ---
Author Organization [facility] Rico Evans [place] lt Address [address] [place] [address]- Care Team Providers Care Clinical Investigator Name Role Phone Jeramie Martinez MD Primary Care Physician [place] [facility] Date(s): 04/25/22 - 05/25/22 [facility] Adult [address] [place] [address]- Allergies, Adverse Reactions, Alerts No Known Allergies Immunizations Given and Recorded Vaccine Date Status Refusal Reason SARS-CoV-2 (COVID-19) mRNA-1273 vaccine 02/07/21 R ecorded SARS-CoV-2 (COVID-19) mRNA-1273 vaccine 06/12/20 R ecorded SARS-CoV-2 (COVID-19) mRNA-1273 vaccine 05/15/20 R ecorded influenza virus vaccine, inactivated 04/20/20 Give n influenza virus vaccine, inactivated 1 03/02/17 Gi mariana tetanus/diphtheria/pertussis, acel(Tdap) 06/16/15 Given 1Result Comment: [03/02/2017] [facility]:94248-726-98 Medications allopurinol 300 mg oral tablet 1, tablet, By Mouth, Daily at bedtime, # 90 tablet, Refills 1, Maintenance, 11/15/21 13:02:00 EDT, Route to Pharmacy Electronically, [facility] 40934, 173.5, cm, 04/20/20 7:25:00 EST, Height Start [...] Personnel Name: Michelle JUDGE, Jeramie Minaya Position: [facility] Primary Care Physician Member Role: PCP Address: Address: [address] [place] [address]- Care Team Related Persons Name: SEBASTIEN DA SILVA Address: [address] [address]
--- OUTSIDE RECORDS SUMMARY | 2023-09-14 14:31 | XMS_ITS | Continuity of Care Document ---
Author Organization [facility] Address [address] [place] [address]- Care Team Providers Care It Systems Engineer Name Role Phone Jeramie Martinez MD Primary Care Physician Encounter [facility] [place] Date(s): 02/14/23 - 06/14/23 [facility] [address] [place] [address] Attending Physician: Geeta Garcia DO Admitting Physician: Geeta Garcia DO Allergies, Adverse Reactions, Alerts No Known Allergies Immunizations Given and Recorded Vaccine Date Status Refusal Reason SARS-CoV-2 (COVID-19) mRNA-1273 vaccine 02/07/21 R ecorded SARS-CoV-2 (COVID-19) mRNA-1273 vaccine 06/12/20 R ecorded SARS-CoV-2 (COVID-19) mRNA-1273 vaccine 05/15/20 R ecorded influenza virus vaccine, inactivated 04/20/20 Give n influenza virus vaccine, inactivated 1 03/02/17 Gi mariana tetanus/diphtheria/pertussis, acel(Tdap) 06/16/15 Given 1Result Comment: [03/02/2017] [facility]:[id number] Problem List Condition Confirmation Course Effective Dates Status H ealth Status Informant BMI 34.0-34.9,adult Confirmed Active Carpal tunnel syndrome, bilateral Confirmed Active Chronic lower back pain Confirmed Active Gout Confirmed Active Nephrolithiasis 1 Confirmed Active Left groin pain Confirmed Active Elevated liver function tests Confirmed Active Obese class II Confirmed Active [facility] [place] [facility] Social History Social History Type Response Smoking Status Former smoker; Other : Quit smoking age 18; entered on: 03/02/17 Sex Patient Care team information Care Team Personnel Name: Jeramie Martinez MD Position: S Physician - Primary Care Member Role: PCP Address: Address: [address] [place] [address] [place] [address]- Care Team Related Persons Name: SEBASTIEN DA SILVA Address: home [address] [place] [address]
--- OUTSIDE RECORDS SUMMARY | 2023-09-14 14:31 | XMS_ITS | Continuity of Care Document ---
Author Organization [facility] [place] Address [address] [place] [address]- Care Team Providers Care Link Assembler Name Role Phone Jeramie Martinez MD Primary Care Physician [facility]counter [facility] Date(s): 07/06/22 - 08/05/22 [facility] Adult [address] [place] [address]- Allergies, Adverse Reactions, Alerts No Known Allergies Immunizations Given and Recorded Vaccine Date Status Refusal Reason SARS-CoV-2 (COVID-19) mRNA-1273 vaccine 02/07/21 R ecorded SARS-CoV-2 (COVID-19) mRNA-1273 vaccine 06/12/20 R ecorded SARS-CoV-2 (COVID-19) mRNA-1273 vaccine 05/15/20 R ecorded influenza virus vaccine, inactivated 04/20/20 Give n influenza virus vaccine, inactivated 1 03/02/17 Gi mariana tetanus/diphtheria/pertussis, acel(Tdap) 06/16/15 Given 1Result Comment: [03/02/2017] [facility]:[id number] Medications allopurinol 300 mg oral tablet 1, tablet, By Mouth, Daily at bedtime, # 90 tablet, Refills 1, Maintenance, 11/15/21 13:02:00 EDT, Route to Pharmacy Electronically, [facility] 49272, 173.5, cm, 04/20/20 7:25:00 EST, Height Start [...] Confirmed Active Obese class II Confirmed [place] [facility] [place] Social History Social History Type Response Smoking Status Former smoker; Other : Quit smoking age 18; entered on: 03/02/17 Sex Patient Care team information Care Team Personnel Name: Michelle JUDGE, Jeramie Minaya Position: S Physician - Primary Care Member Role: PCP Address: Address: [address] [place] [address]- Care Team Related Persons Name: SEBASTIEN DA SILVA Address: home [address] [place] [address]
--- OUTSIDE RECORDS SUMMARY | 2023-09-14 14:31 | XMS_ITS | Continuity of Care Document ---
Author Organization [facility] Agusto [place] Address [address] [place] [address]- Care Team Providers Care Fisher Weir Name Role Phone Jeramie Martinez MD Primary Care Physician [place] [facility] [place] 08/01/22 [facility] [place] Albaley Adult [address] [place] [address]- Attending Physician: Jeramie Martinez MD Allergies, Adverse Reactions, [...] acel(Tdap) 06/16/15 Given 1Result Comment: [03/02/2017] [facility]:[id number] Medications allopurinol 300 mg oral tablet 1, tablet, By Mouth, Daily at bedtime, # 90 tablet, Refills 1, Maintenance, 11/15/21 13:02:00 EDT, Route to Pharmacy Electronically, [facility] 12454, 173.5, cm, 04/20/20 7:25:00 EST, Height Start [...] Confirmed Active Obese class II Confirmed Active [facility] [place] Vital Signs Most recent to oldest [Reference Range]: 1 Height 173.5 cm (07/25/22 12:41 PM) Oxygen Saturation [94-100 %] 98 % (07/25/22 12:41 PM) Pulse Rate [55-90 bpm] 94 bpm *H* (07/25/22 12:41 PM) Blood Pressure [90-138/55-84 mm Hg] 128/ 80mm Hg (07/25/22 12:41 PM) Mode of Delivery (Oxygen) Room air (07/25/22 12:41 PM) Social History Social History Type Response Smoking Status Former smoker; Other : Quit smoking age 18; entered on: 03/02/17 Sex Patient Care team information Care Team Personnel Name: Michelle JUDGE, Jeramie Minaya Position: [facility] Physician - Primary Care Member Role: PCP Address: Address: [address] [place] [address] Adult [facility] [place] [address]- Care Team Related Persons Name: SEBASTIEN DA SILVA Address: home [address] [facility] [place] [address]
--- OUTSIDE RECORDS SUMMARY | 2023-09-14 14:31 | XMS_ITS | Continuity of Care Document ---
Author Organization [facility] Rico Liz [place] Address [address] [place] [address]- Care Team Providers Care Progress Man Name Role Phone Jeramie Martinez MD Primary Care Physician [facility] Date(s): 09/18/22 - 10/18/22 [facility] Rico Liz Adult [address] [place] [address]- Allergies, Adverse Reactions, Alerts No Known Allergies Immunizations Given and Recorded Vaccine Date Status Refusal Reason SARS-CoV-2 (COVID-19) mRNA-1273 vaccine 02/07/21 R ecorded SARS-CoV-2 (COVID-19) mRNA-1273 vaccine 06/12/20 R ecorded SARS-CoV-2 (COVID-19) mRNA-1273 vaccine 05/15/20 R ecorded influenza virus vaccine, inactivated 04/20/20 Give n influenza virus vaccine, inactivated 1 03/02/17 Gi mariana tetanus/diphtheria/pertussis, acel(Tdap) 06/16/15 Given 1Result Comment: [03/02/2017] [facility]:[id number] Medications allopurinol 300 mg oral tablet 1, tablet, By Mouth, Daily at bedtime, # 90 tablet, Refills 1, Maintenance, 11/15/21 13:02:00 EDT, Route to Pharmacy Electronically, [facility] 27263, 173.5, cm, 04/20/20 7:25:00 EST, Height Start Date: 11/15/21 Status: Ordered Ibuprofen 200 mg, PRN, Refills 0, Maintenance, Pain , Severe, 04/11/19 10:31:00 EST Start Date: 04/11/19 Status: Ordered LORazepam 0.5 mg oral tablet See Instructions, 1 tablet by mouth 1 hour prior to MRI appointment, # 1 tablet, 0 Refills, Maintenance, 09/18/22 9:14:00 EDT, Tablet, [id number], Partial fill upon patient request if the prescription is for a schedule II opioid drug., 173.5,... Start Date: 09/18/22 Status: Ordered Problem List Condition Confirmation Course Effective Dates Status H ealth Status Informant BMI 34.0-34.9,adult Confirmed Active Carpal tunnel syndrome, bilateral Confirmed Active Chronic lower back pain Confirmed Active Gout Confirmed Active Nephrolithiasis 1 Confirmed Active Left groin pain Confirmed Active Elevated liver function tests Confirmed Active Obese class II Confirmed Active [facility] [place] Social History Social History Type Response Smoking Status Former smoker; Other : Quit smoking age 18; entered on: 03/02/17 Sex Patient Care team information Care Team Personnel Name: Michelle JUDGE, Jeramie Minaya Position: S Physician - Primary Care Member Role: PCP Address: Address: [address] [place] [address] [place] [address]- Care Team Related Persons Name: SEBASTIEN DA SILVA Address: home [address] [place] [address] [place] [address]
--- OUTSIDE RECORDS SUMMARY | 2023-09-14 14:31 | XMS_ITS | Continuity of Care Document ---
Author Organization [facility] Address [address] [place] [address]- Care Team Providers Care Supervisor Blooming Mill Name Role Phone Jeramie Martinez MD Primary Care Physician [phone] [place] [facility] [place] 06/14/23 [facility] [address] [place] [address] Attending Physician: Rula Telles Admitting Physician: AdmRula arias Referring Physician: Admtr Ar8 Allergies, Adverse Reactions, Alerts No Known Allergies Immunizations Given and Recorded Vaccine Date Status Refusal Reason SARS-CoV-2 (COVID-19) mRNA-1273 vaccine 02/07/21 R ecorded SARS-CoV-2 (COVID-19) mRNA-1273 vaccine 06/12/20 R ecorded SARS-CoV-2 (COVID-19) mRNA-1273 vaccine 05/15/20 R ecorded influenza virus vaccine, inactivated 04/20/20 Give n influenza virus vaccine, inactivated 1 03/02/17 Gi mariana tetanus/diphtheria/pertussis, acel(Tdap) 06/16/15 Given 1Result Comment: [03/02/2017] [facility]:[id number] Problem List Condition Confirmation Course Effective Dates Status H ealth Status Informant BMI 34.0-34.9,adult Confirmed Active Carpal tunnel syndrome, bilateral Confirmed Active Chronic lower back pain Confirmed Active Gout Confirmed Active Nephrolithiasis 1 Confirmed Active Left groin pain Confirmed Active Elevated liver function tests Confirmed Active Obese class II Confirmed [place] [facility] [place] Social History Social History Type Response Smoking Status Former smoker; Other : Quit smoking age 18; entered on: 03/02/17 Sex Patient Care team information Care Team Personnel Name: Jeramie Martinez MD Position: S Physician - Primary Care Member Role: PCP Address: Address: [address] [place] [address] [place] [facility] [place] [address]- Care Team Related Persons Name: SEBASTIEN DA SILVA Address: home [address] [place] [address]
--- OUTSIDE RECORDS SUMMARY | 2023-09-14 14:31 | XMS_ITS | Continuity of Care Document ---
Author Organization [facility] Nathan [place] lt Address [address] [place] [address]- Care Team Providers Care Veneer Stacker Name Role Phone Michelle JUDGE, Jeramie Minaya Primary Care Physician [phone] [facility]counter [facility] Date(s): 05/29/22 - 06/28/22 [facility] Adult [address] [place] [address]- Allergies, Adverse Reactions, Alerts No Known Allergies Immunizations Given and Recorded Vaccine Date Status Refusal Reason SARS-CoV-2 (COVID-19) mRNA-1273 vaccine 02/07/21 R ecorded SARS-CoV-2 (COVID-19) mRNA-1273 vaccine 06/12/20 R ecorded SARS-CoV-2 (COVID-19) mRNA-1273 vaccine 05/15/20 R ecorded influenza virus vaccine, inactivated 04/20/20 Give n influenza virus vaccine, inactivated 1 03/02/17 Gi mariana tetanus/diphtheria/pertussis, acel(Tdap) 06/16/15 Given 1Result Comment: [03/02/2017] [facility]:[id number] Medications allopurinol 300 mg oral tablet 1, tablet, By Mouth, Daily at bedtime, # 90 tablet, Refills 1, Maintenance, 11/15/21 13:02:00 EDT, Route to Pharmacy Electronically, [facility] 60430, 173.5, cm, 04/20/20 7:25:00 EST, Height Start [...] Personnel Name: Michelle JUDGE, Jeramie Minaya [facility] Primary Care Physician Member Role: PCP Address: Address: [address] [place] [address]- Care Team Related Persons Name: SEBASTIEN DA SILVA Address: [address] [address]
--- OUTSIDE RECORDS SUMMARY | 2023-09-14 14:31 | XMS_ITS | Continuity of Care Document ---
Author Organization [facility] Nathan [place] lt Address [address] [place] [address]- Care Team Providers Care Inventory Planner Name Role Phone Jeramie Martinez MD Primary Care Physician [facility]counter [facility] Date(s): 07/19/22 - 08/18/22 [facility] Adult [address] [place] [address]- Allergies, Adverse Reactions, Alerts No Known Allergies Immunizations Given and Recorded Vaccine Date Status Refusal Reason SARS-CoV-2 (COVID-19) mRNA-1273 vaccine 02/07/21 R ecorded SARS-CoV-2 (COVID-19) mRNA-1273 vaccine 06/12/20 R ecorded SARS-CoV-2 (COVID-19) mRNA-1273 vaccine 05/15/20 R ecorded influenza virus vaccine, inactivated 04/20/20 Give n influenza virus vaccine, inactivated 1 03/02/17 Gi mariana tetanus/diphtheria/pertussis, acel(Tdap) 06/16/15 Given 1Result Comment: [03/02/2017] [facility]:[id number] Medications allopurinol 300 mg oral tablet 1, tablet, By Mouth, Daily at bedtime, # 90 tablet, Refills 1, Maintenance, 11/15/21 13:02:00 EDT, Route to Pharmacy Electronically, [facility] 51522, 173.5, cm, 04/20/20 7:25:00 EST, Height Start [...] Confirmed Active Obese class II Confirmed Active [facility] [place] Social History Social History Type Response Smoking Status Former smoker; Other : Quit smoking age 18; entered on: 03/02/17 Sex Patient Care team information Care Team Personnel Name: Michelle JUDGE, Jeramie Minaya Position: [facility] Physician - Primary Care Member Role: PCP Address: Address: [address] [place] [address]- Care Team Related Persons Name: SEBASTIEN DA SILVA Address: [address] [address]
--- OUTSIDE RECORDS SUMMARY | 2023-09-14 14:31 | XMS_ITS | Continuity of Care Document ---
Author Organization [facility] Nathan [place] lt Address [address] [place] [address]- Care Team Providers Care Front End Assistant Name Role Phone Jeramie Martinez MD Primary Care Physician [phone] [facility]counter [facility] Date(s): 07/25/22 - 08/24/22 [facility] Adult [address] [place] [address]- Allergies, Adverse Reactions, Alerts No Known Allergies [...] Comment: [03/02/2017] [facility]:[id number] Medications allopurinol 300 mg oral tablet 1, tablet, By Mouth, Daily at bedtime, # 90 tablet, Refills 1, Maintenance, 11/15/21 13:02:00 EDT, Route to Pharmacy Electronically, [facility] 86318, 173.5, cm, 04/20/20 7:25:00 EST, Height Start [...] Confirmed Active Obese class II Confirmed [place] [facility] [place] Social History Social History Type Response Smoking Status Former smoker; Other : Quit smoking age 18; entered on: 03/02/17 Sex Patient Care team information Care Team Personnel Name: Michelle JUDGE, Jeramie Minaya Position: [facility] Physician - Primary Care Member Role: PCP Address: Address: [address] [place] [address]- Care Team Related Persons Name: SEBASTIEN DA SILVA Address: [address] [address]
--- OUTSIDE RECORDS SUMMARY | 2023-09-14 14:31 | XMS_ITS | Continuity of Care Document ---
Author Organization [facility] Rico Evans [place] lt Address [address] [place] [address]- Care Team Providers Care Mixing House Operator Name Role Phone Jeramie Martinez MD Primary Care Physician [place] [facility] [place] 04/24/22 - 05/24/22 [facility] Adult [address] [place] [address]- Allergies, Adverse Reactions, Alerts No Known Allergies Immunizations Given and Recorded Vaccine Date Status Refusal Reason SARS-CoV-2 (COVID-19) mRNA-1273 vaccine 02/07/21 R ecorded SARS-CoV-2 (COVID-19) mRNA-1273 vaccine 06/12/20 R ecorded SARS-CoV-2 (COVID-19) mRNA-1273 vaccine 05/15/20 R ecorded influenza virus vaccine, inactivated 04/20/20 Give n influenza virus vaccine, inactivated 1 03/02/17 Gi mariana tetanus/diphtheria/pertussis, acel(Tdap) 06/16/15 Given 1Result Comment: [03/02/2017] [facility]:[id number] Medications allopurinol 300 mg oral tablet 1, tablet, By Mouth, Daily at bedtime, # 90 tablet, Refills 1, Maintenance, 11/15/21 13:02:00 EDT, Route to Pharmacy Electronically, [facility] 25509, 173.5, cm, 04/20/20 7:25:00 EST, Height Start [...] Personnel Name: Michelle JUDGE, Jeramie Minaya Position: [facility] Primary Care Physician Member Role: PCP Address: Address: [address] [place] [address]- Care Team Related Persons Name: SEBASTIEN DA SILVA Address: [address] [address]
--- OUTSIDE RECORDS SUMMARY | 2023-09-14 14:31 | XMS_ITS | Continuity of Care Document ---
Author Organization [facility] Rico Evans [place] lt Address [address] [place] [address]- Care Team Providers Care Obiee Report Developer Name Role Phone Jeramie Martinez MD Primary Care Physician En[place] [facility] [place](s): 04/24/22 - 05/24/22 [facility] Adult [address] [place] [address]- Allergies, Adverse Reactions, Alerts No Known Allergies Immunizations Given and Recorded Vaccine Date Status Refusal Reason SARS-CoV-2 (COVID-19) mRNA-1273 vaccine 02/07/21 R ecorded SARS-CoV-2 (COVID-19) mRNA-1273 vaccine 06/12/20 R ecorded SARS-CoV-2 (COVID-19) mRNA-1273 vaccine 05/15/20 R ecorded influenza virus vaccine, inactivated 04/20/20 Give n influenza virus vaccine, inactivated 1 03/02/17 Gi mariana tetanus/diphtheria/pertussis, acel(Tdap) 06/16/15 Given 1Result Comment: [03/02/2017] [facility]:[id number] Medications allopurinol 300 mg oral tablet 1, tablet, By Mouth, Daily at bedtime, # 90 tablet, Refills 1, Maintenance, 11/15/21 13:02:00 EDT, Route to Pharmacy Electronically, [facility] 10443, 173.5, cm, 04/20/20 7:25:00 EST, Height Start [...] Personnel Name: Michelle JUDGE, Jeramie Minaya Position: [facility] Primary Care Physician Member Role: PCP Address: Address: [address] [place] [address]- Care Team Related Persons Name: SEBASTIEN DA SILVA Address: [address] [address]
--- OUTSIDE RECORDS SUMMARY | 2023-09-14 14:31 | XMS_ITS | Continuity of Care Document ---
Author Organization [facility] Nathan [place] lt Address [address] [place] [address]- Care Team Providers Care Victim Witness Administrator Name Role Phone Jeramie Martinez MD Primary Care Physician [place] [facility] [place] 04/22/20 - 05/22/20 [facility] Adult [address] [place] [address]- Allergies, Adverse Reactions, Alerts Substance Reaction Severity Status NKA Active Immunizations Given and Recorded Vaccine Date Status Refusal Reason influenza virus vaccine, inactivated 04/20/20 Give n influenza virus vaccine, inactivated 1 03/02/17 Gi mariana tetanus/diphtheria/pertussis, acel(Tdap) 06/16/15 Given 1Result Comment: [03/02/2017] [facility]:[id number] Medications allopurinol 300 mg oral tablet 300 mg, 1, tablet, By Mouth, Daily at bedtime, # 90 tablet, Refills 1, Tot. Refills 1, Maintenance,03/16/20 8:08:00 EST, Route to Pharmacy Electronically, [facility]/pharmacy #[id number], 173.5, cm, 03/16/20 7:45:00 EST, Height, [...]
--- OUTSIDE RECORDS SUMMARY | 2023-09-14 14:31 | XMS_ITS | Continuity of Care Document ---
Author Organization [facility] Nathan [place] lt Address [address] [place] [address]- Care Team Providers Care Ornamental Metal Erector Name Role Phone Jeramie Martinez MD Primary Care Physician [phone] [place] [facility] [place]20 [facility] Adult [address] [place] [address]- Attending Physician: Not on Staff, Attending MD Referring Physician: Jeramie Martinez MD Allergies, Adverse Reactions, Alerts Substance Reaction Severity Status NKA Active Immunizations Given and Recorded Vaccine Date Status Refusal Reason influenza virus vaccine, inactivated 04/20/20 Give n influenza virus vaccine, inactivated 1 03/02/17 Gi mariana tetanus/diphtheria/pertussis, acel(Tdap) 06/16/15 Given 1Result Comment: [03/02/2017] [facility] [place]:[id number] Medications allopurinol 300 mg oral tablet 300 mg, 1, tablet, By Mouth, Daily at bedtime, # 90 tablet, Refills 1, Tot. Refills 1, Maintenance,03/16/20 8:08:00 EST, Route to Pharmacy Electronically, [facility]/pharmacy #7111, 173.5, cm, 03/16/20 7:45:00 EST, Height, [...] Gout(Confirmed) Active Elevated liver function tests(Confirmed) Active Vital Signs Most recent to oldest [Reference Range]: 1 Height 173.5 cm (04/20/20 7:25 AM) Weight 103.1 kg (04/20/20 7:25 AM) Oxygen Saturation [94-100 %] 98 % (04/20/20 7:25 AM) Pulse Rate [55-90 bpm] 93 bpm *H* (04/20/20 7:25 AM) Body Mass Index [18.5-24.99] 34.25 *>HHI* (04/20/20 7:25 AM) Blood Pressure [90-138/55-84 mm Hg] 124/ 82mm Hg (04/20/20 7:25 AM) Blood pressure sites Arm, left (04/20/20 7:25 AM) Social History Social History Type Response Smoking Status Former smoker; Other : Quit smoking age 18; entered on: 03/02/17 Sex
--- NOTE | 2023-09-14 14:38 | ECG_ITS ---
Test Reason : L shoulder pain Blood Pressure : / mmHG Vent. Rate : 091 BPM Atrial Rate : 091 BPM P-R Int : 162 ms QRS Dur : 102 ms QT Int : 370 ms P-R-T Axes : 026 013 000 degrees QTc Int : 455 ms Normal sinus rhythm Normal ECG When compared with ECG of 01-SEP-2020 13:36, No significant change was found Referred By: Maris Pinedo Electronically Signed By:ILIA PEÑA
[2023-09-14] MEDS: Acetaminophen 325 MG TABLET 650 MG PO (14:54)
[2023-09-14] MEDS: Ketorolac Tromethamine 30 MG/ML VIAL IM (14:54)
[2023-09-14 15:47] VITALS: BP 135/87; PULSE 85; RESP 16; TEMP 36.6; O2SAT 98
[2023-09-14 16:00] VITALS: BP 135/87; PULSE 85; RESP 16; TEMP 36.6; O2SAT 98
== END 2023-09-14 16:01 | disposition home or self-care (01) ==
PROVIDERS: Emergency Provider Emergency Medicine; PCP Internal Medicine
DX: M25.512 Pain in left shoulder (principal)
CPT/HCPCS: 73030; 93005; 96372; 99284; J1885

== ENCOUNTER → 2023-09-14 14:38 | Outpatient (BNV) | payer BC, SELFPAY | PROVIDERS: Emergency Provider Emergency Medicine; PCP Internal Medicine; Visit Provider Internal Medicine | DX: M25.512 Pain in left shoulder (principal) | CPT/HCPCS: 93010 ==

== ENCOUNTER 2024-12-08 08:05 | Outpatient (AMB) | payer OTHER, SELFPAY ==
--- NOTE | 2024-12-08 07:59 | MHC.PC.OV ---
Vital Signs 12/08/24 08:09 Height 5 ft 8.98 in Weight 201 lb 2 oz BMI 29.7 BP 136/71 Blood Pressure Location Rt brachial Position Sitting Pulse 86 Pulse Source Pulse Oximeter Temp 97.1 F Temp Source Temporal Artery Scan Pulse Oximetry (%) 98 Oxygen Delivery Method Room Air Intake Visit Reasons: establish care Intake Note: has been having dizzy spells. has had left testicle discomfort for awhile, feels like dull ache and starts in left abdomen Accompanied by: Self / Same As Patient Allergies No Known Allergies (No Known Allergies*) Allergy (Verified 12/08/24 07:59) Tobacco use date assessed: 12/08/24 Dental Screening Dental Screen Date: 12/08/24 Did you have a dental visit in the last 12 months?: No PFSH Medical History Gout Surgical History Previous back surgery Family History (Updated 12/08/24 @ 08:14 by Jaimie Morse CMA) Mother HTN (hypertension) Father No problems noted. Social History Housing: House Patient Tobacco Use Status: Never used Tobacco service: No Current occupational status: employed Cognitive needs: No Hearing needs: No Vision needs: Yes (rx glasses) Questionnaire PHQ-9 Over the last 2 weeks, how often have you been bothered by any of the following problems? 1. Little interest or pleasure in doing things: not at all 2. Feeling down, depressed, or hopeless: not at all 3. Trouble falling or staying asleep, or sleeping too much: not at all 4. Feeling tired or having little energy: not at all 5. Poor appetite or overeating: not at all 6. Feeling bad about yourself - or that you are a failure or have let yourself or your family down: not at all 7. Trouble concentrating on things, such as reading the newspaper or watching television: not at all 8. Moving or speaking so slowly that other people could have noticed. Or the opposite - being so fidgety or restless that you have been moving around a lot more than usual: not at all 9. Thoughts that you would be better off or of hurting yourself in some way: not at all Total score: 0 Source: Developed by Drs. German He, Isrrael Troy and colleagues, with an educational britney from [employer]. Thrive Questionnaire Date Thrive assessed: 12/08/24 I am a: Patient What is your living situation today?: I have a steady place to live Within the past 12 months, did the food you bought not last and you didn't have the money to get more?: Never true Within the past 12 months, did you worry whether your food would run out before you got money to buy more?: Never true Do you have trouble paying for medicines?: No Do you have trouble getting transportation to medical appointments?: No Do you have trouble paying your heating and electricity bill?: No Do you have trouble taking care of your child, family member or friend?: No Do you have trouble with day-to-day activities such as bathing, preparing meals, shopping, managing finances, etc.?: No Are you currently unemployed and looking for a job?: No Are you interested in more education?: No Please select the resources that you would like help with: None THRIVE Score: 0 AUDIT C Alcohol Use Questionnaire (AUDIT-C) 1. How often do you have a drink containing alcohol?: Monthly or less Total Score: 1 SANTO-7 AMB Questionnaire SANTO-7 Date SANTO - 7 assessed: 12/08/24 Feeling nervous, anxious, or on edge: 0 = Not at all Not being able to stop or control worryin = Not at all Worrying too much about different things: 0 = Not at all Trouble relaxin = Not at all Being so restless that it is hard to sit still: 0 = Not at all Becoming easily annoyed or irritable: 0 = Not at all Feeling afraid as if something awful might happen: 0 = Not at all Total SANTO-7 score (0-4 normal; 5-9 mild; 10-14 moderate; 15-21 severe): 0 Source: Developed by Vane Kuo Kurt Kroenke and colleagues, with an educational britney from [employer]. Physical exam (Primary Care) Vital Signs: Last Vital Signs Temp 97.1 F 12/08/24 08:09 Pulse 86 12/08/24 08:09 BP 136/71 12/08/24 08:09 Pulse Ox 98 12/08/24 08:09 Oxygen Delivery Method Room Air 12/08/24 08:09 BMI result Body Mass Index 29.7 Tobacco/Smoking Status: Tobacco use Status Tobacco use date assessed 12/08/24 12/08/24 08:01 Patient Tobacco Use Status Never used Tobacco 12/08/24 08:01 PHQ-9: PHQ-9 Score PHQ-9: Total score 0 12/08/24 08:08 Thrive Assessment: Date of Thrive Assessment Date Thrive assessed 12/08/24 12/08/24 08:01 Coding Level of Care Code New Pt Level 4 (14961) Complex EM visit Add On G2211 Diagnoses Bilateral nephrolithiasis N20.0 Assessment & Plan Assessment & Plan (1) Bilateral nephrolithiasis: Code(s): N20.0 - Calculus of kidney Category: Medical Plan: History of Present Illness - The patient is a 49-year-old male presenting with dizziness and chronic abdominal pain with radiating pain to the left testicle. 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 - The dizziness is described as more severe than usual, prompting recent blood work and a basic panel by his previous primary care provider. - Chronic abdominal pain: The patient describes persistent abdominal pain with radiating pain to the left testicle, which is constant and aching in nature. - An ultrasound of the scrotum in 2020 revealed a varicocele, but no significant findings were noted at that time. - The patient has not seen a urologist for this issue and no surgical interventions have been performed. - Preventative care: The patient has not undergone a colonoscopy despite being over the age of 48, and there is no family history of colon cancer. Social History - Employment: Works at [employer]. - Family: Lives with and four children, one of whom is a senior at [employer] and lives away from home. - Substance Use: Denies smoking and alcohol consumption. Review of Systems - Neurological: Reports dizziness with episodes of wavy vision. Denies any other neurological symptoms. - Gastrointestinal: Reports chronic abdominal pain with radiating pain to the left testicle. Denies any other gastrointestinal symptoms. - Genitourinary: Reports constant aching pain in the left testicle. Denies any issues with erections. Physical Exam General: Cooperative and healthy appearing Nutritional Appearance: Well nourished Orientation/consciousness: Patient oriented x3 Limitations: No limitations Head: Normal to inspection General: Appearance normal, both eyes and all related structures Neck: Normal visual inspection Chest: Normal palpation of entire chest wall Respiratory: N ormal respiratory effort Neurology: Patient oriented x3, reports episodes of dizziness with wavy vision, requiring further evaluation. Results - Ultrasound: Scrotal ultrasound in 2020 showed a varicocele. Plan - Recommend an eye examination to evaluate the cause of dizziness and wavy vision. If the eye exam is normal and symptoms persist, further testing will be conducted. - Schedule a colonoscopy for colorectal cancer screening as the patient is over 50 years old and has not had one yet. - Referral to a urologist for evaluation of the varicocele and persistent testicular pain. Consideration for surgical intervention if deemed necessary by the specialist. Discussion Notes I discussed with the patient the importance of undergoing an eye examination to determine the cause of his dizziness and wavy vision. If the eye examination is normal and symptoms persist, further diagnostic tests will be considered. We also talked about the necessity of a colonoscopy for colorectal cancer screening, given his age and lack of family history of colon cancer. Additionally, I recommended a referral to a urologist to evaluate the varicocele and persistent testicular pain, with the possibility of surgical intervention if necessary. The patient was informed about the process of scheduling these appointments and the importance of follow-up care. Patient Instructions - Schedule an eye exam to assess dizziness and wavy vision. - Follow up with a colonoscopy appointment for colorectal cancer screening. - Arrange a consultation with a urologist for evaluation of testicular pain and varicocele. Orders: Orders Complete Blood Count no Diff Today N20.0 - Calculus of kidney Lipid Panel Today N20.0 - Calculus of kidney Liver Panel Today N20.0 - Calculus of kidney UA and rflx microscopic Today N20.0 - Calculus of kidney Thyroid Stimulating Hormone Today N20.0 - Calculus of kidney Basic Metabolic Panel Today N20.0 - Calculus of kidney Referrals Gastroenterology Referral Z12.11 - Encounter for screening for malignant neoplasm of colon
[2024-12-08 08:09] VITALS: BP 136/71; PULSE 86; TEMP 36.2; O2SAT 98; BMI 29.7
--- OUTSIDE RECORDS SUMMARY | 2024-12-08 08:10 | XMS_ITS | Data Portability ---
Author Organization [place] - [facility], [facility] Address [address] [place] [address] Care Team Providers Care [employer] Worker Name Role Phone MICKYLEA Burris Primary Care Provider Assessment Encounter Date Assessment Date Assessment LastModified by Organization Details LastModified Time 09/18/2023 09/18/2023 Assessment: 1. 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 Plan: 1. Home rehab program focusing on anterior release 2. Diclofenac -As needed 3. Gabapentin for pain management-As needed as needed 4. The patient has not responded to a subacromial injection as well as a vigorous rehab program. He would likely benefit from a subacromial decompression. An appointment was made with Dr. Adrian All of the patient's questions were answered fully. The patient feels comfortable with the present care plan. Thanks for allowing me to be a part of this patient's care team! Please feel free to contact me for any reason. Sincerely, Moe Muniz MD, FACEP [facility] [place] Not available 09/18/2023 17:08:27 2023 2023 X-rays 4 views previously obtained and personally reviewed today AP internal/external, scapular Y, axillary views left shoulder demonstrate: Calcific tendinitis deposition superior to the greater tuberosity. Glenohumeral joint space preserved. AC joint space preserved with type II acromion. Impression: Left shoulder calcific tendinitis and biceps tendinitis Plan: Reviewed the diagnosis and treatment options with the patient today. He reports temporary relief after previous corticosteroid injection. He has been modifying his activities and avoiding weight lifting. He has significant pain and tenderness over the biceps tendon sheath. Ultrasound-guided biceps tendon sheath corticosteroid injection was administered. He will follow-up again in 6 weeks. If no improvement would recommend MRI left shoulder and potentially considering surgical intervention: Left shoulder diagnostic arthroscopy calcific tendinitis debridement, subacromial decompression, possible biceps tenodesis. [email or web address] Not available 2023 18:36:46 07/02/2024 07/02/2024 A/ L long finger trigger finger recurrent after 1 prior cortisone injection in March 2023 Plan: We reviewed again the pathophysiology of trigger finger and his treatment options. Second cortisone injection is performed today. He understands this should be the final injection and that the neck step for treatment will involve a trigger finger release. Booking sheet completed today for left long trigger finger release surgery. He would like to have this done under local only. He is provided with my executive secretary social welfare's contact information and will call if and when he needs to be scheduled for left long trigger finger release surgery. We have discussed the postoperative recovery course for the recommended surgery. Risks of surgery include but are not limited to: Infection, bleeding, damage normal tissues, need for future surgeries, and recurrent or recalcitrant symptoms after surgery. Questions asked and answered to the patient's satisfaction; surgery to be scheduled with my executive secretary social welfare. [email or web address] Not available 07/02/2024 16:16:51 Plan of Treatment Reminders Order Date Submit Date Provider Last Modified By Organization Details Last Modified Time Details Appointments None recorded. Lab None recorded. Referral None recorded. Procedures None recorded. Surgeries None recorded. Imaging XR, knee, 4 or more view - uc 4- rt knee 4v new patient 2023 024 [facility], [address], [address], [place], [address], 4 12:46:29 Medication Orders meloxicam 15 mg tablet 2023 024 [id number], [address] [place], [address], 4 12:46:29 Patient TargetsNo targets recorded. Patient InstructionsNo instructions recorded. Reason for Referral None Reported. Results Created Date Observation Date Name Description Value Unit Range Abnormal Flag Note LastModifiedBy Organization Detail LastModifiedTime 10/20/19 24 09/21/2022 imagi ng/di agnos tic resul t No observ ation record ed. [email or web address] Not Available 09/21 06:17:43 Result Notes None recorded. Problems Name Problem SNOMED Code Status Onset Date Resolution Date Notes Provider Name and Address Organization Details Recorded Time No complaints 572650965 Active Status : 'A'; Not Available [facility] 4 09:12:01 Calcific tendinitis of left shoulder 8440509563528 08 Active 2023 Moe lazar MD [address], [facility] [place], [address] , [facility] 4 17:08:36 Problem Notes None recorded. Procedures Surgical History Date Name Laterality Status Provider Name and Address Organization Details Recorded Time 5 Trigger Finger Kenalog Injection completed Emy Hernandez MD [address] [facility] [address], [place], [address], [facility] 07/02/2024 16:09:30 4 Sports Shoulder 4&1 w/US completed Cheo Adrian MD [address], [place], [address], [facility] 2023 18:35:02 Imaging Results None recorded. Procedure Notes None recorded. Medical Equipment None Reported. Allergies No known drug allergies Medications Name Sig Start Date Stop Date Status Note LastModified by Organization Details LastModified Time prednisone 10 mg tablet PLEASE SEE ATTACHED FOR DETAILED DIRECTION S 05/16 completed Not Available Not Available Not Available meloxicam 15 mg tablet TAKE 1 TABLET EVERY DAY BY ORAL ROUTE AFTER MEAL(S) FOR 30 DAYS. active Not Available Not Available No t Available acetaminoph en 500 mg tablet TAKE 1 TABLET BY MOUTH EVERY 6 HOURS NEEDED FOR PAIN active Not Available Not Available No t Available lorazepam 0.5 mg tablet TAKE 1 TABLET BY MOUTH 1 HOUR PRIOR TO MRI APPOINTME NT 05/16 completed Not Available Not Available Not Available lidocaine 5 % topical patch APPLY 1 PATCH TOPICALLY DAILY TO MOST PAINFUL AREA NEEDED FOR PAIN, REMOVE AFTER 12 HOURS active Not Available Not Available No t Available gabapentin 300 mg capsule TAKE 1 CAPSULE BY MOUTH EVERYDAY AT BEDTIME 05/16 completed Not Available Not Available Not Available diclofenac sodium 75 mg tablet,nicolás yed release TAKE 1 TABLET TWICE A DAY DIRECTED START THIS MEDICATIO N AFTER FINISHING PREDNISON E 05/16 completed Not Available Not Available Not Available naproxen 500 mg tablet TAKE 1 TABLET BY MOUTH 2 TIMES A DAY NEEDED FOR PAIN FOR 10 DAYS active Not Available Not Available No t Available cyclobenzap rine 5 mg tablet TAKE 1 TABLET (5MG) BY MOUTH EVERY 8 HOURS NEEDED FOR PAIN (SCALE 7-10) FOR 5 DAYS active Not Available Not Available No t Available Vitals Date Recorded Body height Body mass index (BMI) Body weight Provider Name and Address Organization Details Last Updated DateTime 05/17/2023 175.26 cm 30.3 kg/m2 94414.44 g MIKE BOSE [facility] 05/17/2023 09:12:52 Date Recorded Body height Body mass index (BMI) Body weight Provider Name and Address Organization Details Last Updated DateTime 07/02/2024 175.26 cm 32.5 kg/m2 92161.32 g LEANDRA JOHNSON [facility] 07/02/2024 15:42:36 Date Recorded Body height Body mass index (BMI) Body weight Provider Name and Address Organization Details Last Updated DateTime 09/18/2023 175.26 cm 30.3 kg/m2 90625.44 g JEANETTE DURAN [facility] 09/18/2023 11:26:30 Date Recorded Body height Body mass index (BMI) Body weight Provider Name and Address Organization Details Last Updated DateTime 2023 175.26 cm 30.3 kg/m2 51408.44 g JAIR BAY [facility] 2023 11:45:18 Social History Question Answer Notes LastModified by Organizat ion Details LastModified Time Tobacco Smoking Status Never Smoker JEANETTE guzman [facility] 09/18/2023 11:26:46 What Is Your Relationship Status? Unknown Information not available 09/18/2023 Sex: Unknown Functional Status Question Answer Note LastModified by Organizat ion Details LastModified Time Do you use any illicit or recreational drugs? No Information not available 09/18/2023 Do you or have you ever used any other forms of tobacco or nicotine? No Information not available 09/18/2023 What is your level of alcohol consumption? None Information not available 09/18/2023 Mental Status None recorded. Family History Nothing Reported. Medical History Condition Response Allergies/Hayfever N Coronary Artery Disease N Anxiety/Depression N Emphysema N Thyroid Problems N COPD N Pacemaker N Anemia N Kidney/Bladder Problems N Vascular Disease N Heart Attack ([place]) N Gastrointestinal Disease N Diabetes N Autoimmune disease N Bleeding Disorder N Orthotics N Arthritis Y Seizures/Epilepsy N Blood Clot N AIDS/HIV N Congestive Heart Failure (CHF) N Acid Reflux (GERD) N Cancer N Stroke N Asthma N Peripheral Vascular Disease N Sleep Apnea N Hepatitis N Heart Disease N Rheumatoid Arthritis N Arrhythmia N Pulmonary Embolism N Fibromyalgia N Hypertension N Osteoporosis N Past Encounters Encounter ID Performer Location Encounter Start Date Encounter Closed Date Diagnosis/Indication Diagnosis SNOMED-CT Code Diagnosis ICD10 Code Diagnosis IMO Codes Diagnosis Note [id number] Monisha Fowler PA-C [facility] [place] [address] 05/17/2023 08:51:25 05/17/2023 12:22:23 Pain of right knee joint 1301506062 34790 M25.394 [id number] Moe lazar MD [facility] [address] [place] [address] 09/18/2023 10:54:29 10/05/2023 10:39:12 Calcific tendinitis of left shoulder 0248210315 68951 M75.32 [id number] Cheo Adrian MD [facility] [address] [place] [address] 2023 11:41:11 10/23/2023 13:33:30 Bilateral tendinitis of long head of biceps brachii of shoulders 2379127425 9525558 M75.22 [id number] MD [facility] [address] [place] [address] 07/02/2024 15:05:58 07/04/2024 13:23:13 Triggering of digit 209228958 M65.750 [id number] Health Concerns Section Related Observation LastModified by Organization Detai ls LastModified Time None Recorded Concern Status LastModified by Organization Details LastModified Time None Recorded Advance Directives Directive None Recorded Payers Insurance Date Sequence Insurance Name Policy Number Policy Huynh Covered Member ID Huynh Member ID Guarantor Name 11/15/2023 1 [facility] H[facility] (HMO) [id number] Tim Taylor Bob [id number] Tim Brandon Bob 07/02/2024 1 [facility] [id number] Tim Taylor Bob [id number] Tim Taylor Bob 07/02/2024 1 *SELF PAY* Mi burak Rojas Notes Date Note Type Note Provider Name and Address Organization Details Recorded Time 05/17/2023 text/html Patient seen under general supervision of Dr. Rao who was available but who did not see the patient.HPI: Patient is a 47-year-old male who presents today for urgent care evaluation of his right knee. Pain began about a week ago after he was playing basketball. He denies any acute traumatic injuries. He developed some inflammation and difficulty with ambulation thereafter. He has been icing, taking anti-inflammatory medications, and resting over the past week. Has not had much relief. He denies any locking or catching, or buckling sensation. He has increased pain with certain twisting motionsPast family, medical, social history and review of systems has been reviewed, updated and is located in the patient s chart.Examination:T he patient is well appearing and in no apparent distress. Alert and oriented x3. Gait is symmetric. Right knee skin intact, no erythema, mild edema, no ecchymosis. No large joint effusion. Knee range of motion from 0-95 limited by pain. No laxity about the knee. He has a slightly positive Paula's maneuver medially. Distally neuromotor intact, sensation intact throughoutX-rays ordered, obtained and reviewed at [facility] putting 3 views of the right knee which reveals no acute fractures or dislocations, mild arthritic changesImpression: 47-year-old male with right knee pain, likely acute arthritic flare versus meniscus tearPlan: Just findings with the patient. At this point recommended prescription for meloxicam which was sent to his pharmacy today. I recommended he continue conservative treatment at home to include icing, anti-inflammatory medications, elevating, and activity modification. If he does not improve after another week or so, could consider cortisone injection versus MRI for further evaluation. [facility] speech recognition oil well fishing tool operator software was used to create portions of this document. An attempt at proofreading has been made to minimize errors. Please call for corrections. Monisha Fowler PA-C [address], [place], [address], [facility] 05/17/2023 12:00:09 09/18/2023 text/html Clinical update: The patient reports significant improvement after the shoulder injection which only lasted a few weeks. He has been struggling with ongoing pain. Recently while on vacation he had a sudden onset of severe right shoulder pain without any specific inciting incident. Shoulder has been improving but continues to have pain. 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 He denies any specific inciting incident. He denies any weakness. He has pain at night when he sleeps on his left side.ROS: Pertinent positives and negatives as above. 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 Tobacco: Denies.FHx: No family history that contributes to today's MSK complaint. Moe Muniz MD [address], [place], [address], [facility] 09/18/2023 17:08:50 2023 text/html Chief complaint: Left shoulder painInterval history: 47-year-old male here today for chief complaint of left shoulder pain. He reports pain with overhead motion and lifting. Remains symptomatic despite treatment oral medication and subacromial steroid injection. Pain localizes to the anterior trapezius and anterior aspect of his shoulder. Symptoms aggravated by weight lifting. MRI of the left shoulder has been obtained. Patient has been following with Dr. Muniz and has been referred for discussion regarding surgical treatment.To recap last visit: The patient reports significant improvement after the shoulder injection which only lasted a few weeks. He has been struggling with ongoing pain. Recently while on vacation he had a sudden onset of severe right shoulder pain without any specific inciting incident. Shoulder has been improving but continues to have pain. 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 He denies any specific inciting incident. He denies any weakness. He has pain at night when he sleeps on his left side.ROS: Pertinent positives and negatives as above. 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 Tobacco: Denies.FHx: No family history that contributes to today's MSK complaint. Cheo Adrian MD [address], [place], [address], [facility] 2023 18:37:14 07/02/2024 text/html ROS as noted in the HPI Patient is a 48-year-old RHD male last seen by me in March 2023 at which time he was treated for left long trigger finger with a cortisone injection. He did well with that injection for a long time but his symptoms have recurred. PMHx: gout, not currently taking allopurinol Emy Hernandez MD [address], [place], [address], [facility] 07/02/2024 16:17:15
--- OUTSIDE RECORDS SUMMARY | 2024-12-08 08:10 | XMS_ITS | Clinical Summary ---
Author Organization [facility] Address [address] [place] [id number] Phone Care Team Providers Care Detail Supervisor Name Role Phone Jeramie Martinez MD Primary Care Provider [phone] Allergies No known active allergies Medications allopurinol (ZYLOPRIM) 300 MG tablet Take by mouth. 03/27/2021 Active Active Problems No known active problems Social History Tobacco Use Types Packs/Day Years Used Date Smoking Tobacco: Never Smokeless Tobacco: Never Tobacco Cessation:Counseling Given: Not Answered Alcohol Use Standard Drinks/Week Comments Never 0 (1 standard drink = 0.6 oz pur e alcohol) Education Answer Date Recorded Are you interested in more education? Not on anne-marie e 06/16/2022 Are you concerned about learning? Not on file 06/16/2022 No 06/16/2022 No 06/16/2022 Digital Access Answer Date Recorded No 07/15/2022 No 07/15/2022 No 07/15/2022 Reliable internet access at home? Not on file 07/15/2022 Device with a working camera? Not on file Sex and Gender Information Value Date Recorded Sex Assigned at Not on file Legal Sex Male 10:31 PM EDT Gender Identity Not on file Sexual Orientation Not on file Last Filed Vital Signs Vital Sign Reading Time Taken Comments Blood Pressure 132/84 04/03/2022 8:52 AM EST Pulse 82 04/03/2022 8:52 AM EST Temperature 36.8 C (98.2 F) 04/03/2022 8:52 AM EST Respiratory Rate 16 04/03/2022 8:52 AM EST Oxygen Saturation 96% 04/03/2022 8:52 AM EST Inhaled Oxygen Concentration - - Weight 99.8 kg (220 lb) 04/03/2022 8:52 AM EST Height 175.3 cm (5' 9 ) 04/03/2022 8:52 AM EST Body Mass Index 32.49 04/03/2022 8:52 AM EST Plan of Treatment Health Maintenance Due Date Last Done Comments CREATININE LEVEL 1973 LIPID PANEL 1973 DEPRESSION SCREENING 1985 HEPATITIS C SCREENING 09/26/1991 HIV ONE-TIME SCREENING (18-6 5 YEARS) 09/26/1991 SCREENING FOR DIABETES 2008 COLOGUARD 2018 COLONOSCOPY 2018 COLORECTAL CANCER SCREENING 2018 FIT TEST 2018 FOBT 2018 SIGMOIDOSCOPY 2018 VIRTUAL COLONOSCOPY 2018 PNEUMOCOCCAL VACCINES (50+ years) (1 of 1 - PCV) 09/26/2023 ZOSTER VACCINES (1 of 2) 09/26/2023 INFLUENZA VACCINE (#1) 2024 , 03/02/2017 COVID-19 VACCINE (4 - 2024-2 6 season) 2024 02/07/2021, 06/12/2020, 05/15/2020 Adult Td,Tdap Booster 06/15/2025 06/16/2015 RSV VACCINE (1 - 1-dose 75+ series) 2048 SMOKING STATUS SCREENING (On ce After 26 Yrs) Completed 04/03/2022 HEPATITIS A VACCINES Aged Out No long er eligible based on patient's age to complete this topic HIB VACCINES Aged Out No longer eligi ble based on patient's age to complete this topic MENINGOCOCCAL VACCINES (ACWY) Aged Out No longer eligible based on patient's age to complete this topic MENINGOCOCCAL VACCINES (B) Aged Out N o longer eligible based on patient's age to complete this topic Medical Devices Not on file Insurance [facility] [address] [place] [address] [place] [address] [place] [address] [facility] Care Teams Detail Supervisor Relationship Specialty Start Date End Date Jeramie Martinez MD [address] [place] [id number] PCP - General Internal Medicine 04/03/22 Additional Source Comments The information contained in this document represents components of the legal health record. It is not the complete legal health record.[facility]
== END 2024-12-08 08:33 | disposition home or self-care (01) ==
LOC: HO.HMCSH 08:05
PROVIDERS: PCP Internal Medicine; Visit Provider Internal Medicine
DX: N20.0 Calculus of kidney (principal)